=== PATIENT | female | born 1975 | race Caucasian/White ===

== ENCOUNTER → 2016-09-05 | Outpatient (CLI) | payer BC ==
[~2016-09-05] MED LIST: ASP325T PO; CA C1TAB73 PO; CYCL10TA9 PO; ESCT10T PO; FLUT16SP22; HYDR200T46 PO; LVT.025T PO; NAPR-243 PO; NAPR250T34 PO; PRD20T PO; SULF1TAB35 PO; TRM50T PO
--- OUTSIDE RECORDS SUMMARY | 2016-09-05 11:28 | XMS REPORT ---
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
== END ==
LOC: LAB 11:25
PROVIDERS: ATTEND Nurse Practitioner Family
DX: M79.602 Pain in left arm (principal)
CPT/HCPCS: 36415; 85379

== ENCOUNTER → 2016-10-15 | Outpatient (CLI) | payer BC ==
--- NOTE | 2016-10-15 21:48 | Diagnostic Imaging Report ---
INDICATION: Palpable abnormality. FINDINGS: Focused ultrasound in the periareolar area of the right breast was performed. This demonstrated a benign cyst measuring 1.9 x 1 x 1.9 cm. There are a few other tiny benign cysts. No solid lesions are appreciated. Diffuse screening ultrasound of the left breast demonstrated numerous tiny benign cysts however no suspicious lesions. IMPRESSION: Category 2, benign. Bilateral renal cysts. Specifically, the palpable area in the subareolar region or the right breast corresponds to a 1.9 cm cyst. Dictated by: Dictated on workstation # [id number]
--- NOTE | 2016-10-15 21:52 | Diagnostic Imaging Report ---
INDICATION: Palpable abnormality. The current study was also evaluated with a Computer Aided Detection (CAD) system. COMPARISON: 08/12/14, 10/15/2016. FINDINGS: There is moderately dense fibroglandular tissue bilaterally. There is a focal area of increased parenchymal density in the subareolar region of the right breast. Ultrasound of this area demonstrated benign-appearing cyst. There is no discrete dominant mass, spiculated lesion or suspicious calcification identified. Skin, nipples and axillar are unremarkable. IMPRESSION: Category 2, benign. ACR BI-RADS Category 2: Benign findings. Result letter will be mailed to the patient. Note: At least 10% of breast cancer is not imaged by mammography. Dictated by: Dictated on workstation # [id number]
== END ==
LOC: RAD 07:59
PROVIDERS: ATTEND Nurse Practitioner Family
DX: N63 Unspecified lump in breast (principal)
CPT/HCPCS: 77066

== ENCOUNTER 2017-01-10 00:21 | Emergency (ER) | payer BC ==
[~2017-01-10] VITALS: Ht 154.9 cm; Wt 65.3 kg
[2017-01-10] MEDS ORDERED: SPIR50TA2 (00:37)
[2017-01-10] MEDS ORDERED: ESCI20TA45 (00:37)
[2017-01-10 01:26] LABS: BASOPHILS % (AUTO) 1 % (0-10); EOSINOPHILS # (AUTO) 0.2 10^3/uL (0.0-0.3); EOSINOPHILS % (AUTO) 2 % (0-10); LYMPHOCYTES # (AUTO) 2.2 X 10^3 (1.0-4.0); LYMPHOCYTES % (AUTO) 30 % (12-44); MEAN CORPUSCULAR HEMOGLOBIN 29 PG (25-34); MEAN CORPUSCULAR HGB CONC 34 G/DL (32-36); MEAN CORPUSCULAR VOLUME 87 FL (80-99); MEAN PLATELET VOLUME 8.8 FL (7.4-10.4); MONOCYTES # (AUTO) 0.8 X 10^3 (0.0-1.0); MONOCYTES % (AUTO) 12 % (0-12); NEUTROPHILS % (AUTO) 56 % (42-75); PLATELET COUNT 417 10^3/uL (130-400); RED BLOOD COUNT 4.37 10^6/uL (4.35-5.85); RED CELL DISTRIBUTION WIDTH 12.8 % (10.0-14.5); WHITE BLOOD COUNT 7.2 10^3/uL (4.3-11.0)
[2017-01-10 01:32] LABS: BILIRUBIN,URINE NEGATIVE (NEGATIVE); KETONES,URINE NEGATIVE (NEGATIVE); LEUKOCYTE ESTERASE ,URINE NEGATIVE (NEGATIVE); NITRITE,URINE NEGATIVE (NEGATIVE); PH,URINE 6.5 (5-9); PROTEIN,URINE NEGATIVE (NEGATIVE); UROBILINOGEN,URINE NORMAL (NORMAL)
[2017-01-10 01:37] LABS: SQUAMOUS EPITHELIAL CELL,UR 0-2 /HPF
[2017-01-10 01:46] LABS: ALANINE AMINOTRANSFERASE 21 U/L (0-55); ALBUMIN 4.3 G/DL (3.2-4.5); ANION GAP 8 MMOL/L (5-14); ASPARTATE AMINO TRANSFERASE 14 U/L (5-34); BILIRUBIN,TOTAL 0.4 MG/DL (0.1-1.0); BLOOD UREA NITROGEN 13 MG/DL (7-18); BUN/CREATININE RATIO 15; CALCIUM 9.2 MG/DL (8.5-10.1); CARBON DIOXIDE 27 MMOL/L (21-32); CHLORIDE 100 MMOL/L (98-107); CREATININE SERUM 0.86 MG/DL (0.60-1.30); GFR ESTIMATED > 60; GLUCOSE 103 MG/DL (70-105); MAGNESIUM 2.4 MG/DL (1.8-2.4); POTASSIUM 3.4 MMOL/L (3.6-5.0); SODIUM 135 MMOL/L (135-145); TOTAL PROTEIN 7.1 G/DL (6.4-8.2)
[2017-01-10 02:06] LABS: THYROID STIMULATING HORMONE 1.98 UIU/ML (0.35-4.94)
[2017-01-10] MEDS ORDERED: KCL 20 MEQ TAB (K-DUR) PO ONE (02:30)
--- NOTE | 2017-01-10 02:31 | ED Lower Extremity ---
General Chief Complaint: Lower Extremity Stated Complaint: BOTH LEGS RETAINING FLUID,SWELLING,ACHING,LUPUS, Nursing Triage Note: patient reports her legs being swollen, patient reports having a history of this and having PRN medication. patient reports it hasn't been this bad before Nursing Sepsis Screen: No Definite Risk Source: patient, RN notes reviewed Exam Limitations: no limitations History of Present Illness Time seen by provider: 01:45 Initial Comments As above and below. Onset: this evening Severity: moderate Pain/Injury Location: bilateral leg Method of Injury: unknown Modifying Factors: Improves With Other (none) Allergies and Home Medications Allergies Coded Allergies: Penicillins (Verified Allergy, Intermediate, HIVES AND SWELLING, 09/14/15) Home Medications Aspirin 325 Mg Tab, 325 MG PO DAILY, (Reported) Escitalopram Oxalate 20 Mg Tablet, #30 (Reported) Furosemide 40 Mg Tablet, 40 MG PO Q AM PRN for SWELLING, #30 Ref 0 Prescribed by: LIDIA BARKLEY on 01/10/17 0237 Hydroxychloroquine Sulfate 200 Mg Tab, 400 MG PO DAILY, (Reported) Potassium Chloride 20 Meq Tab.er.prt, 20 MEQ PO Q AM PRN for WITH LASIX, #30 Ref 0 Prescribed by: LIDIA BARKLEY on 01/10/17 0237 Spironolactone 50 Mg Tablet, #60 (Reported) Constitutional: see HPI Musculoskeletal: see HPI, other (BLE swelling and discomfort) All Other Systems Reviewed Negative Unless Noted: Yes (Negative excepted noted.) Past Oxqkyls-Ycrzkt-Hovrdv Hx Patient Social History Alcohol Use: Denies Use Recreational Drug Use: No Smoking Status: Never a Smoker Recent Foreign Travel: No Contact w/Someone Who Travel: No Recent Infectious Disease Expo: No Immunizations Up To Date Tetanus Booster (TDap): More than 5yrs Surgeries HX Surgeries: Yes Respiratory Hx Respiratory Disorders: No Cardiovascular Hx Cardiac Disorders: Yes Neurological Hx Neurological Disorders: No Genitourinary Hx Genitourinary Disorders: No Gastrointestinal Hx Gastrointestinal Disorders: No Musculoskeletal Hx Musculoskeletal Disorders: Yes (LUPUS) Endocrine Hx Endocrine Disorders: Yes Endocrine Disorders: Hypothyroidsim, Lupus HEENT HX ENT Disorders: No Cancer Hx Cancer: No Psychosocial Hx Psychiatric Problems: Yes (OCD) Integumentary HX Skin/Integumentary Disorder: No Blood Transfusions Hx Blood Disorders: No Physical Exam Vital Signs Vital Sign - Last 12Hours 01/10/17 00:33 Temp 98.4 Pulse 100 Resp 18 B/P (MAP) 151/95 Pulse Ox 98 Capillary Refill : Less Than 3 Seconds General Appearance: WD/WN, no apparent distress Cardiovascular: regular rate, rhythm Respiratory: no respiratory distress Legs: bilateral leg non-tender, bilateral leg no evidence of injury, bilateral leg swelling Neurologic/Psychiatric: no motor/sensory deficits, alert, oriented x 3 Skin: normal color, warm/dry, No rash Progress/Results/Core Measures Results/Orders Lab Results Laboratory Tests Test 01/10/17 01:15 01/10/17 01:18 Range/Units White Blood Count 7.2 4.3-11.0 10^3/uL Red Blood Count 4.37 4.35-5.85 10^6/uL Hemoglobin 12.8 11.5-16.0 G/DL Hematocrit 38 35-52 % Mean Corpuscular Volume 87 80-99 FL Mean Corpuscular Hemoglobin 29 25-34 PG Mean Corpuscular Hemoglobin Concent 34 32-36 G/DL Red Cell Distribution Width 12.8 10.0-14.5 % Platelet Count 417 H 130-400 10^3/uL Mean Platelet Volume 8.8 7.4-10.4 FL Neutrophils (%) (Auto) 56 42-75 % Lymphocytes (%) (Auto) 30 12-44 % Monocytes (%) (Auto) 12 0-12 % Eosinophils (%) (Auto) 2 0-10 % Basophils (%) (Auto) 1 0-10 % Neutrophils # (Auto) 4.0 1.8-7.8 X 10^3 Lymphocytes # (Auto) 2.2 1.0-4.0 X 10^3 Monocytes # (Auto) 0.8 0.0-1.0 X 10^3 Eosinophils # (Auto) 0.2 0.0-0.3 10^3/uL Basophils # (Auto) 0.0 0.0-0.1 10^3/uL Sodium Level 135 135-145 MMOL/L Potassium Level 3.4 L 3.6-5.0 MMOL/L Chloride Level 100 98-107 MMOL/L Carbon Dioxide Level 27 21-32 MMOL/L Anion Gap 8 5-14 MMOL/L Blood Urea Nitrogen 13 7-18 MG/DL Creatinine 0.86 0.60-1.30 MG/DL Estimat Glomerular Filtration Rate > 60 BUN/Creatinine Ratio 15 Glucose Level 103 70-105 MG/DL Calcium Level 9.2 8.5-10.1 MG/DL Magnesium Level 2.4 1.8-2.4 MG/DL Total Bilirubin 0.4 0.1-1.0 MG/DL Aspartate Amino Transf (AST/SGOT) 14 5-34 U/L Alanine Aminotransferase (ALT/SGPT) 21 0-55 U/L Alkaline Phosphatase 36 L 40-136 U/L Total Creatine Kinase 76 29-168 U/L B-Type Natriuretic Peptide 12.4 <100.0 PG/ML Total Protein 7.1 6.4-8.2 G/DL Albumin 4.3 3.2-4.5 G/DL Thyroid Stimulating Hormone (TSH) 1.98 0.35-4.94 UIU/ML Urine Color YELLOW Urine Clarity CLEAR Urine pH 6.5 5-9 Urine Specific [place] 1.010 L 1.016-1.022 Urine Protein NEGATIVE NEGATIVE Urine Glucose (UA) NEGATIVE NEGATIVE Urine Ketones NEGATIVE NEGATIVE Urine Nitrite NEGATIVE NEGATIVE Urine Bilirubin NEGATIVE NEGATIVE Urine Urobilinogen NORMAL NORMAL MG/DL Urine Leukocyte Esterase NEGATIVE NEGATIVE Urine RBC (Auto) 3+ H NEGATIVE Urine RBC NONE /HPF Urine WBC NONE /HPF Urine Squamous Epithelial Cells 0-2 /HPF Urine Crystals NONE /LPF Urine Bacteria NEGATIVE /HPF Urine Casts NONE /LPF Urine Mucus NEGATIVE /LPF Urine Culture Indicated NO Urine Test NEGATIVE NEGATIVE My Orders Orders - LIDIA BARKLEY DO Saline Lock/Iv-Start (01/10/17 01:08) BNP (01/10/17 01:08) Cbc With Automated Diff (01/10/17 01:08) Comprehensive Metabolic Panel (01/10/17 01:08) Magnesium (01/10/17 01:08) Thyroid Stimulating Hormone (01/10/17 01:08) Ua Culture If Indicated (01/10/17 01:08) Hcg,Qualitative Urine (01/10/17 01:14) Creatine Kinase (01/10/17 01:59) Potassium Chloride (Tablet) (K Dur Table (01/10/17 02:30) Medications Given in ED Current Medications Medications Dose Ordered Sig/Daksha Route Start Time Stop Time Status Last Admin Dose Admin Potassium Chloride 40 meq ONCE ONCE PO 01/10/17 02:30 01/10/17 02:31 DC 01/10/17 02:40 40 MEQ Vital Signs/I&O Vital Sign - Last 12Hours 01/10/17 01/10/17 00:33 02:42 Temp 98.4 Pulse 100 84 Resp 18 20 B/P (MAP) 151/95 Pulse Ox 98 99 Blood Pressure Mean: 113 Departure Impression Impression: Primary Impression: Peripheral edema Disposition: HOME, SELF-CARE Condition: Stable Departure-Patient Inst. Decision time for Depature: 02:32 Referrals: LIDIA URENA DO (PCP) Primary Care Physician SPENCER URENA DNP (Family) Primary Care Physician Patient Instructions: Dependent Edema (DC) Add. Discharge Instructions: All discharge instructions reviewed with patient and/or family. Voiced understanding. RECOMMEND TOUCHING BASE WITH YOUR INFORMATION SYSTEMS AUDIT MANAGER REGARDING YOUR SWELLING TO SEE IF THERE IS ANYTHING ELSE THEY RECOMMEND CHECKING. Scripts Potassium Chloride (Potassium Chloride) 20 Meq Tab.er.prt 20 MEQ PO Q AM Y for WITH LASIX, #30 0 Refills Prov: LIDIA BARKLEY DO 01/10/17 Furosemide (Lasix) 40 Mg Tablet 40 MG PO Q AM Y for SWELLING, #30 TAB 0 Refills Prov: LIDIA BARKLEY DO 01/10/17 LIDIA BARKLEY DO January 10, 2017 02:31
[2017-01-10] MEDS ORDERED: POTA20TA15 PO (02:37)
[2017-01-10] MEDS ORDERED: FURO-124 PO (02:37)
[2017-01-10 02:42] VITALS: BP 131/78
== END 2017-01-10 02:42 | disposition home or self-care (01) ==
LOC: EDUNIT# 00:21 → ER 00:24
DX: R60.0 Localized edema (principal); L93.0 Discoid lupus erythematosus; Z79.82 Long term (current) use of aspirin; Z79.899 Other long term (current) drug therapy
CPT/HCPCS: 36415; 80053; 81000; 82550; 83735; 83880; 84443; 84703; 85025

== ENCOUNTER 2017-01-14 17:05 | Emergency (ER) | payer BC ==
[~2017-01-14] VITALS: Ht 154.9 cm; Wt 67.1 kg
[~2017-01-14 17:05] MED LIST changes: +ESCI20TA45; +FURO-124 PO; +POTA20TA15 PO; +SPIR50TA2
--- NOTE | 2017-01-14 17:26 | ED Lower Extremity ---
General Chief Complaint: Lower Extremity Stated Complaint: L LEG PAIN Source: patient Exam Limitations: no limitations History of Present Illness Time seen by provider: 17:24 Initial Comments To ER with left leg burning and pain. She was seen here on Saturday the for bilateral lower extremities burning and pain. She does have lupus. She also states that both legs were swollen. She had labs drawn and was ultimately given some potassium and Lasix. No improvement in symptoms. Today of the left leg seems to be a bit more painful. She states that she is test positive for the antiphospholipid antibody and does have a history of DVT. She is on Plaquenil for lupus. Onset: last week Severity: moderate Pain/Injury Location: bilateral leg Method of Injury: unknown Modifying Factors: Worse With Movement Allergies and Home Medications Allergies Coded Allergies: Penicillins (Verified Allergy, Intermediate, HIVES AND SWELLING, 09/14/15) Home Medications Aspirin 325 Mg Tab, 325 MG PO DAILY, (Reported) Escitalopram Oxalate 20 Mg Tablet, #30 (Reported) Furosemide 40 Mg Tablet, 40 MG PO Q AM PRN for SWELLING, #30 Ref 0 Prescribed by: LIDIA BARKLEY on 01/10/17 0237 Hydroxychloroquine Sulfate 200 Mg Tab, 400 MG PO DAILY, (Reported) Potassium Chloride 20 Meq Tab.er.prt, 20 MEQ PO Q AM PRN for WITH LASIX, #30 Ref 0 Prescribed by: LIDIA BARKLEY on 01/10/17 0237 Spironolactone 50 Mg Tablet, #60 (Reported) Constitutional: see HPI EENTM: see HPI Respiratory: no symptoms reported Cardiovascular: no symptoms reported Genitourinary: no symptoms reported Musculoskeletal: no symptoms reported Skin: no symptoms reported Psychiatric/Neurological: No Symptoms Reported Past Vunfnjq-Lcdujg-Xlusqg Hx Patient Social History Alcohol Use: Occasionally Uses Recreational Drug Use: No Smoking Status: Never a Smoker Recent Foreign Travel: No Contact w/Someone Who Travel: No Immunizations Up To Date Tetanus Booster (TDap): More than 5yrs Surgeries HX Surgeries: Yes Respiratory Hx Respiratory Disorders: No Cardiovascular Hx Cardiac Disorders: Yes Neurological Hx Neurological Disorders: No Genitourinary Hx Genitourinary Disorders: No Gastrointestinal Hx Gastrointestinal Disorders: No Musculoskeletal Hx Musculoskeletal Disorders: Yes (LUPUS) Endocrine Hx Endocrine Disorders: Yes Endocrine Disorders: Hypothyroidsim, Lupus HEENT HX ENT Disorders: No Cancer Hx Cancer: No Psychosocial Hx Psychiatric Problems: Yes (OCD) Integumentary HX Skin/Integumentary Disorder: No Blood Transfusions Hx Blood Disorders: No Physical Exam Vital Signs Vital Sign - Last 12Hours 01/14/17 17:12 Temp 98.8 Pulse 90 Resp 18 B/P (MAP) 128/83 Pulse Ox 98 Capillary Refill : General Appearance: WD/WN, no apparent distress HEENT: PERRL/EOMI, normal ENT inspection Neck: non-tender, full range of motion Respiratory: no respiratory distress, no accessory muscle use Gastrointestinal: normal bowel sounds, non tender, soft Hips: bilateral hip non-tender, bilateral hip normal inspection, bilateral hip normal range of motion Legs: bilateral leg non-tender, bilateral leg normal inspection, bilateral leg normal range of motion, bilateral leg other (no palpable swelling, no pitting edema, no ecchymosis or abnormal appearance to either lower extremity.) Knees: bilateral knee non-tender, bilateral knee normal inspection, bilateral knee normal range of motion Ankles: bilateral ankle non-tender, bilateral ankle normal inspection, bilateral ankle normal range of motion Feet: bilateral foot non-tender, bilateral foot normal inspection, bilateral foot normal range of motion Neurologic/Psychiatric: alert, normal mood/affect, oriented x 3 Skin: normal color, warm/dry Progress/Results/Core Measures Results/Orders Lab Results Laboratory Tests Test 01/14/17 17:50 Range/Units White Blood Count 7.0 4.3-11.0 10^3/uL Red Blood Count 4.42 4.35-5.85 10^6/uL Hemoglobin 12.7 11.5-16.0 G/DL Hematocrit 38 35-52 % Mean Corpuscular Volume 86 80-99 FL Mean Corpuscular Hemoglobin 29 25-34 PG Mean Corpuscular Hemoglobin Concent 33 32-36 G/DL Red Cell Distribution Width 12.6 10.0-14.5 % Platelet Count 400 130-400 10^3/uL Mean Platelet Volume 8.4 7.4-10.4 FL Neutrophils (%) (Auto) 63 42-75 % Lymphocytes (%) (Auto) 25 12-44 % Monocytes (%) (Auto) 10 0-12 % Eosinophils (%) (Auto) 2 0-10 % Basophils (%) (Auto) 0 0-10 % Neutrophils # (Auto) 4.4 1.8-7.8 X 10^3 Lymphocytes # (Auto) 1.7 1.0-4.0 X 10^3 Monocytes # (Auto) 0.7 0.0-1.0 X 10^3 Eosinophils # (Auto) 0.1 0.0-0.3 10^3/uL Basophils # (Auto) 0.0 0.0-0.1 10^3/uL Erythrocyte Sedimentation Rate 6 0-20 MM/HR Sodium Level 130 L 135-145 MMOL/L Potassium Level 3.8 3.6-5.0 MMOL/L Chloride Level 94 L 98-107 MMOL/L Carbon Dioxide Level 26 21-32 MMOL/L Anion Gap 10 5-14 MMOL/L Blood Urea Nitrogen 8 7-18 MG/DL Creatinine 0.71 0.60-1.30 MG/DL Estimat Glomerular Filtration Rate > 60 BUN/Creatinine Ratio 11 Glucose Level 90 70-105 MG/DL Calcium Level 9.1 8.5-10.1 MG/DL C-Reactive Protein High Sensitivity 0.05 0.00-0.50 MG/DL My Orders Orders - RACHELLE HARPER APRN Us Venous Lower Ext Harini (01/14/17 17:24) Cbc With Automated Diff (01/14/17 17:28) Hs C Reactive Protein (01/14/17 17:28) Erythrocyte Sedimentation Rate (01/14/17 17:28) Basic Metabolic Panel (01/14/17 17:28) Vital Signs/I&O Vital Sign - Last 12Hours 01/14/17 17:12 Temp 98.8 Pulse 90 Resp 18 B/P (MAP) 128/83 Pulse Ox 98 Diagnostic Imaging Diagonstic Imaging: Ultrasound Comments NAME: ROBBIE PI[facility]A [facility] REC#: [id number] PT STATUS: REG ER : 1975 PHYSICIAN: RACHELLE HARPER APRN ADMIT DATE: 01/14/17/ER Draft Date of Exam:01/14/17 US VENOUS LOWER EXT HARINI INDICATION: Bilateral leg pain. COMPARISON: None. TECHNIQUE: The bilateral lower extremity deep venous system was interrogated from the common femoral vein through the popliteal vein. These images were assessed for grayscale appearance, color and spectral Doppler blood flow, compression, and augmentation. FINDINGS: There is no evidence of intraluminal filling defect. Normal compression and augmentation is noted throughout. Soft tissues are unremarkable. IMPRESSION: 1. No sonographic evidence of deep venous thrombosis in the bilateral lower extremities. Dictated on workstation # [id number] Dict: 01/14/171749 Trans: 01/14/171751 [id number] Interpreted by: YOSI DENIS MD Electronically signed by: Departure Impression Impression: Primary Impression: leg discomfort Disposition: HOME, SELF-CARE Condition: Stable Departure-Patient Inst. Decision time for Depature: 18:54 Referrals: LIDIA AGARWAL DO (PCP) Primary Care Physician SPENCER AGARWAL DNP (Family) Primary Care Physician Patient Instructions: NO INSTRUCTIONS GIVEN Add. Discharge Instructions: 1. A copy of these labs have been sent to Dr. Agarwal. Call his office tomorrow for further evaluation and treatment 2. All discharge instructions reviewed with patient and/or family. Voiced understanding. Copy Copies To 1: LIDIA AGARWAL PETER J APRN January 14, 2017 17:26
--- NOTE | 2017-01-14 17:52 | Diagnostic Imaging Report ---
INDICATION: Bilateral leg pain. COMPARISON: None. TECHNIQUE: The bilateral lower extremity deep venous system was interrogated from the common femoral vein through the popliteal vein. These images were assessed for grayscale appearance, color and spectral Doppler blood flow, compression, and augmentation. FINDINGS: There is no evidence of intraluminal filling defect. Normal compression and augmentation is noted throughout. Soft tissues are unremarkable. IMPRESSION: 1. No sonographic evidence of deep venous thrombosis in the bilateral lower extremities. Dictated by: Dictated on workstation # [id number]
[2017-01-14 17:57] LABS: BASOPHILS % (AUTO) 0 % (0-10); EOSINOPHILS # (AUTO) 0.1 10^3/uL (0.0-0.3); EOSINOPHILS % (AUTO) 2 % (0-10); LYMPHOCYTES # (AUTO) 1.7 X 10^3 (1.0-4.0); LYMPHOCYTES % (AUTO) 25 % (12-44); MEAN CORPUSCULAR HEMOGLOBIN 29 PG (25-34); MEAN CORPUSCULAR HGB CONC 33 G/DL (32-36); MEAN CORPUSCULAR VOLUME 86 FL (80-99); MEAN PLATELET VOLUME 8.4 FL (7.4-10.4); MONOCYTES # (AUTO) 0.7 X 10^3 (0.0-1.0); MONOCYTES % (AUTO) 10 % (0-12); NEUTROPHILS # (AUTO) 4.4 X 10^3 (1.8-7.8); NEUTROPHILS % (AUTO) 63 % (42-75); PLATELET COUNT 400 10^3/uL (130-400); RED BLOOD COUNT 4.42 10^6/uL (4.35-5.85); RED CELL DISTRIBUTION WIDTH 12.6 % (10.0-14.5)
[2017-01-14 18:18] LABS: ANION GAP 10 MMOL/L (5-14); BLOOD UREA NITROGEN 8 MG/DL (7-18); BUN/CREATININE RATIO 11; CALCIUM 9.1 MG/DL (8.5-10.1); CARBON DIOXIDE 26 MMOL/L (21-32); CHLORIDE 94 MMOL/L (98-107); CREATININE SERUM 0.71 MG/DL (0.60-1.30); GFR ESTIMATED > 60; GLUCOSE 90 MG/DL (70-105); POTASSIUM 3.8 MMOL/L (3.6-5.0); SODIUM 130 MMOL/L (135-145); hs C REACTIVE PROTEIN 0.05 MG/DL (0.00-0.50)
[2017-01-14 18:19] LABS: ERYTHROCYTE SEDIMENTATION RATE 6 MM/HR (0-20)
[2017-01-14 19:00] VITALS: BP 113/81
== END 2017-01-14 19:00 | disposition home or self-care (01) ==
LOC: EDUNIT# 17:05 → ER 17:07
DX: M79.662 Pain in left lower leg (principal); L93.0 Discoid lupus erythematosus; Z79.82 Long term (current) use of aspirin; Z79.899 Other long term (current) drug therapy; Z86.718 Personal history of other venous thrombosis and embolism
CPT/HCPCS: 36415; 80048; 85025; 85652; 86141; 93970; 99283

== ENCOUNTER 2017-10-18 17:19 | Emergency (ER) | payer BC ==
[~2017-10-18] VITALS: Ht 154.9 cm; Wt 68.0 kg
--- NOTE | 2017-10-18 17:33 | ED Lower Extremity ---
General Chief Complaint: Lower Extremity Stated Complaint: L LEG POSS BLOOD CLOT Nursing Triage Note: cramping in calf on saturday after lots of traveling, patient has antiphospolipid syndrome. Nursing Sepsis Screen: No Definite Risk History of Present Illness Date Seen by Provider: Oct 18, 2017 Time Seen by Provider: 17:28 Initial Comments Patient presents to the ER with concern for DVT of the left lower extremity. Patient reports having a cramp in her leg last Saturday and Saturday (10/12 & 10/13 ) but this has resolved and not returned since. She reports mild swelling to the ankles bilaterally, denies redness, and denies any current pain. Patient has had extensive recent travel flying from [place] to [place] back to [place] and then driving to [place] and back to [place] over the past 2 weeks. She reports having a history of antiphospholipid disorder and taking a daily aspirin but is concerned for a blood clot like evaluated. She had outpatient order from her primary care provider to have d-dimer and left lower extremity ultrasound done, however, since ultrasound had already left for the day they could not be called in for a stat outpatient scan so the patient checked into the emergency room. Onset: last week Severity: mild Method of Injury: unknown Allergies and Home Medications Allergies Coded Allergies: Penicillins (Verified Allergy, Intermediate, HIVES AND SWELLING, 09/14/15) Home Medications Aspirin 325 Mg Tab, 325 MG PO DAILY, (Reported) Furosemide 40 Mg Tablet, 40 MG PO Q AM PRN for SWELLING Prescribed by: LIDIA BARKLEY on 01/10/17236 Hydroxychloroquine Sulfate 200 Mg Tab, 400 MG PO DAILY, (Reported) Potassium Chloride 20 Meq Tab.er.prt, 20 MEQ PO Q AM PRN for WITH LASIX Prescribed by: LIDIA BARKLEY on 01/10/17236 Constitutional: no symptoms reported, see HPI EENTM: see HPI, no symptoms reported Respiratory: no symptoms reported, see HPI Cardiovascular: no symptoms reported, see HPI Gastrointestinal: no symptoms reported, see HPI Genitourinary: no symptoms reported, see HPI Musculoskeletal: see HPI, other (minimal swelling to the ankles bilaterally) Skin: no symptoms reported, see HPI Psychiatric/Neurological: No Symptoms Reported, See HPI Past Leyuesq-Xshauv-Ehlmzo Hx Patient Social History Recent Foreign Travel: No Contact w/Someone Who Travel: No Recent Infectious Disease Expo: No Immunizations Up To Date Tetanus Booster (TDap): More than 5yrs Surgeries History of Surgeries: Yes Respiratory History of Respiratory Disorde: No Cardiovascular History of Cardiac Disorders: Yes (fluid retention) Neurological History of Neurological Disord: No Gastrointestinal History of Gastrointestinal Di: No Musculoskeletal History of Musculoskeletal Dis: Yes (LUPUS) Endocrine History of Endocrine Disorders: Yes Endocrine Disorders: Hypothyroidsim, Lupus Cancer History of Cancer: No Psychosocial History of Psychiatric Problem: Yes (OCD) Integumentary History of Skin or Integumenta: No Blood Transfusions History of Blood Disorders: No Physical Exam Vital Signs Vital Signs - First Documented 10/18/17 17:24 Temp 99.0 Pulse 97 Resp 20 B/P (MAP) 143/94 (110) Pulse Ox 100 Capillary Refill : Less Than 3 Seconds General Appearance: WD/WN, no apparent distress HEENT: PERRL/EOMI, normal ENT inspection, TMs normal, pharynx normal Neck: non-tender, full range of motion Cardiovascular: normal peripheral pulses, regular rate, rhythm, no edema, no gallop, no JVD, no murmur Respiratory: chest non-tender, lungs clear, normal breath sounds, no respiratory distress, no accessory muscle use Gastrointestinal: normal bowel sounds, non tender, soft Back: normal inspection Neurologic/Tendon: normal sensation, normal motor functions Neurologic/Psychiatric: alert, normal mood/affect, oriented x 3 Skin: normal color, warm/dry Lymphatic: no adenopathy Progress/Results/Core Measures Results/Orders My Orders Orders - RACHELLE HARPER APRN Us Venous Lower Ext Lt (10/18/17 17:27) Vital Signs/I&O Vital Sign - Last 12Hours 10/18/17 10/18/17 17:24 18:19 Temp 99.0 99.0 Pulse 97 97 Resp 20 20 B/P (MAP) 143/94 (110) 143/94 (110) Pulse Ox 100 100 Blood Pressure Mean: 110 Departure Communication (Admissions) Progress Notes 1823-discussed with the patient her negative left lower extremity ultrasound. She is asking about the d-dimer which her primary care provider had ordered as an outpatient. However, Advised that since we have disproved clot with ultrasound which is more valuable than the d-dimer in DVT evaluation, there would be no value in adding a d-dimer at this point. She has no swelling erythema or pain to either arm or her right leg. Impression Impression: Primary Impression: history of cramps left lower extremity Additional Impressions: Antiphospholipid syndrome recent immobilization Disposition: 01 HOME, SELF-CARE Condition: Stable Departure-Patient Inst. Decision time for Depature: 18:15 Referrals: LIDIA URENA DO (PCP/Family) Primary Care Physician Patient Instructions: NO INSTRUCTIONS GIVEN Add. Discharge Instructions: 1. Return to ER for any concerns 2. Follow-up with your doctor next week 3. All discharge instructions reviewed with patient and/or family. Voiced understanding. RACHELLE HARPER APRN Oct 18, 2017 17:33
[2017-10-18 18:19] VITALS: BP 143/94
--- NOTE | 2017-10-18 18:31 | Diagnostic Imaging Report ---
PROCEDURE: US left lower extremity venous. TECHNIQUE: Multiple real-time grayscale images were obtained over the left lower extremity in various projections. Additional duplex Doppler and color Doppler images were also obtained. DATE: 10/18/2017. INDICATION: 42-year-old female, left calf pain. COMPARISON: 01/14/2017. FINDINGS: The left common femoral vein, left superficial femoral vein, and left popliteal vein are all compressible with normal flow and response to augmentation. The left posterior tibial and peroneal veins are patent. Visualized portions of the left greater saphenous vein and deep femoral vein are patent. IMPRESSION: 1. Negative for left lower extremity deep venous thrombosis. Dictated by: Dictated on workstation # [id number]
== END 2017-10-18 18:23 | disposition home or self-care (01) ==
LOC: EDUNIT# 17:19 → ER 17:20
DX: I82.402 Acute embolism and thrombosis of unspecified deep veins of left lower extremity (principal); D68.61 Antiphospholipid syndrome; M62.3 Immobility syndrome (paraplegic); E03.9 Hypothyroidism, unspecified; F42.9 Obsessive-compulsive disorder, unspecified; Z79.82 Long term (current) use of aspirin; Z88.0 Allergy status to penicillin

== ENCOUNTER 2018-07-04 17:43 | Observation (INO) | payer BC ==
[~2018-07-04] VITALS: Ht 154.9 cm; Wt 68.6 kg
[~2018-07-04 17:43] MED LIST changes: -SPIR50TA2; +SPIR50TA4
--- OUTSIDE RECORDS SUMMARY | 2018-07-04 17:49 | XMS REPORT | Clinical Summary ---
Author Author [facility] Address Unknown Phone Unavailable Care Team Providers Care Rehabilitation Attendant Name Role Phone PCP Unavailable Allergies Not on File Current Medications Not on file Active Problems Not on file Social History Tobacco Use Types Packs/Day Years Used Date Never Assessed Sex Assigned at Date Recorded Not on file Last Filed Vital Signs Not on file Plan of Treatment Not on file Results Not on filefrom Last 3 Months
--- OUTSIDE RECORDS SUMMARY | 2018-07-04 17:49 | XMS REPORT ---
Author Author BRII JUNG Organization [facility] Address [address] [place] [address] Care Team Providers Care Freelance Director Name Role Phone BRII JUNG Unavailable PROBLEMS Type Condition ICD9-CM Code [id number] Code Onset Dates Condition Status SNOMED Code Problem Anemia D64.9 Active 437321109 Problem [place] fever A21.9 Active 40632665 Problem Environmental allergies Z91.09 Active 981721185 Problem Iron deficiency anemia, unspecified D50.9 Active 58842937 Problem Cough R05 Active 06567819 Problem Thyroid adenoma D34 Active 526910037 Problem Hyperhomocysteinemia E72.11 Active 555495442 Problem Vitamin D deficiency E55.9 Active 76621535 Problem Osteopenia M85.80 Active 501223470 Problem Fibromyalgia M79.7 Active 382904378 Problem Chronic fatigue, unspecified R53.82 Active 09966271 Problem Anemia, iron deficiency D50.9 Active 22933382 Problem Lupus anticoagulant positive R76.0 Active 59055074 Problem Lupus M32.9 Active 90411279 ALLERGIES Substance Reaction Event Type Date Status Cipro Unknown Drug Allergy Jun, Active Penicillins Unknown Non Drug Allergy Jun, Active Sulfa Unknown Non Drug Allergy Jun, Active ENCOUNTERS Encounter Location Date Diagnosis [facility] [address] [facility] [id number] [id number] Jun, [facility] [address] [address] Jun, Cough R05 ; Anemia, iron deficiency D50.9 and Sore throat J02.9 [facility] [id number] [address] Jun, Cough R05 [facility] [id number] [place] [address] [id number] Jun, Cough R05 ; Sore throat J02.9 and Anemia, iron deficiency D50.9 [place] [address] [address] 07 Jun, 2017 Environmental allergies Z91.09 [facility] [id number] [place] [address] [id number] 03 Jun, 2017 Dysfunction of both eustachian tubes H69.83 and Cough in adult patient R05 [facility] [address] [id number] Nov, Insect bite, initial encounter W57.XXXA [facility] [address] [address] Oct, Gastroenteritis K52.9 [place] [id number] [place] [address] [id number] 15 Sep, 2016 Acute recurrent pansinusitis J01.41 and Cough R05 [place] [id number] [place] [address]- [address] 23 Jun, 2016 Environmental allergies Z91.09 ; Chronic fatigue R53.82 ; Anemia, iron deficiency D50.9 ; Lupus M32.9 and Vitamin D deficiency E55.9 [place] [id number] [place] [address]- [address] 15 Jun, 2016 [place] [address] [address] 14 Jun, 2016 [place] [id number] [place] [address]- [address] 10 Jun, 2016 Anemia, iron deficiency D50.9 ; Hyperhomocysteinemia E72.11 ; Chronic fatigue R53.82 ; Environmental allergies Z91.09 ; Cough R05 ; Lupus M32.9 ; Vitamin D deficiency E55.9 and Osteopenia M85.80 [place] [id number] [place] [address] Jun, [place] [id number] [place] [address] [id number]- [address] Apr, [facility] [address] [id number] Apr, Iron deficiency anemia, unspecified iron deficiency anemia type D50.9 and Cough R05 [facility] [id number] [place] [address]- [address] Nov, [place] [address] [address] Nov, Anemia D64.9 [place] [address] [id number] Oct, Chronic sinusitis, unspecified J32.9 ; Headache R51 ; Forgetfulness R68.89 and Low grade fever R50.9 [facility] [id number] [place] [address] [id number] Oct, Sinusitis J32.9 and Eustachian tube dysfunction H69.80 [place] [id number] [place] [address] Oct, Environmental allergies Z91.09 ; Lupus M32.9 ; Chronic fatigue R53.82 ; Hyperhomocysteinemia E72.11 ; Anemia D64.9 and Anemia, iron deficiency D50.9 [facility] [id number] [place] [address] [id number] Sep, Eustachian tube dysfunction H69.80 [place] [id number] [place] [address]- 59[address] 16 Apr, 2015 Dysuria 788.1 and Urinary tract infection 599.0 [place] [id number] [place] [address]- 86[address] 14 Nov, 2014 [place] [id number] [place] [address]- 4[address] 13 Nov, 2014 [place] [address] [address] Oct, [facility] [place] [facility] [address] [id number] [place] [address] Oct, [facility] [place] [facility] [address] [id number] [place] [address] Aug, [facility] [place] [facility] [address] [id number] [place] [address] Aug, [facility] [place] [facility] [address] [id number] [place] [address] Aug, [facility] [place] [facility] [address] [id number] [place] [address] Aug, [facility] [place] [facility] [address] [id number] [place] [address] May, [facility] [place] [facility] [address] [id number] [place] [address] May, [facility] [place] [facility] [address] [id number] [place] [address] May, [facility] [place] [facility] [address] [id number] [place] [address] May, [facility] [place] [facility] [address] [id number] [place] [address] December, [facility] [place] [facility] [address] [id number] [place] [address] December, [facility] [place] [facility] [address] [id number] [place] [address] Oct, [facility] [place] [facility] [address] [id number] [place] [address] Oct, [facility] [place] [facility] [address] [id number] [place] [address] Aug, [facility] [place] [facility] [address] [id number] [place] [address] Aug, [facility] [place] [facility] [address] [facility] [id number] [place] [address] Jul, [facility] [address] [facility] [id number] [address] Jul, [facility] [address] [facility] [id number] [place] [address] Jun, [facility] [address] [facility] [id number] [address] Jun, IMMUNIZATIONS No Known Immunizations SOCIAL HISTORY Never Assessed REASON FOR VISIT cough, sore throat, and fatigue x 5 days [facility] PLAN OF CARE Activity Details Follow Up if s/s not improving with PCP or in Clinic Reason: VITAL SIGNS Height 60 in 2018-06-27 Weight 151 lbs 2018-06-27 Temperature 99.6 degrees Fahrenheit 2018-06-27 Heart Rate 88 bpm 2018-06-27 Respiratory Rate 18 2018-06-27 Oximetry 99 % 2018-06-27 BMI 29.49 kg/m2 2018-06-27 Blood pressure systolic 120 mmHg 2018-06-27 Blood pressure diastolic 82 mmHg 2018-06-27 MEDICATIONS Medication Instructions Dosage Frequency Start Date End Date Duration Status Doxycycline Hyclate 100 mg Orally twice a day 1 capsule 12h Jun, Jun, 10 day(s) Active ProAir HFA 108 (90 Base) MCG/ACT Inhalation every 6 hrs 2 puffs as needed 6h Jun, 0 days Active Plaquenil 400 mg Orally Once a day 1 tablet with food or milk 24h Active PredniSONE 20 mg Orally Once a day 2 tablet 24h Jun, Jun, 5 days Active Omeprazole 20 MG Orally Once a day 1 capsule 24h 30 day(s) Active RESULTS Name Result Date Reference Range STREP A (IN HOUSE) 2018-06-27 STREP A Negative Control + Lot # [id number] Exp date 07/25/2018 PROCEDURES Procedure Date Ordered Result Body Site STREP A ASSAY W/OPTIC Jun 27, 2018 INSTRUCTIONS MEDICATIONS ADMINISTERED No Known Medications MEDICAL (GENERAL) HISTORY Type Description Date Medical History Lupus Medical History Hx of UTI Medical History [place] fever + 09/10 Medical History Hx of nasal polyp 2012 Medical History whooping cough Medical History Iron deficiency anemia Surgical History cholecystectomy Dr Nunes Hospitalization History [facility] [place] Hospitalization History Iron deficiency anemia 11/25/2015
--- OUTSIDE RECORDS SUMMARY | 2018-07-04 17:50 | XMS REPORT ---
Author Author BRII JUNG [facility] Address [address] [place] [address] Care Team Providers Care Area Coordinator Name Role Phone BRII JUNG Unavailable PROBLEMS Type Condition ICD9-CM Code PRJ85-GN Code Onset Dates Condition Status SNOMED Code Problem Anemia D64.9 Active 381751555 Problem [place] fever A21.9 Active 51241964 Problem Environmental allergies Z91.09 Active 117699419 Problem Iron deficiency anemia, unspecified D50.9 Active 66389981 Problem Cough R05 Active 60277810 Problem Thyroid adenoma D34 Active 828432239 Problem Hyperhomocysteinemia E72.11 Active 084819678 Problem Vitamin D deficiency E55.9 Active 91630269 Problem Osteopenia M85.80 Active 319835605 Problem Fibromyalgia M79.7 Active 384964392 Problem Chronic fatigue, unspecified R53.82 Active 92144666 Problem Anemia, iron deficiency D50.9 Active 26643199 Problem Lupus anticoagulant positive R76.0 Active 86096142 Problem Lupus M32.9 Active 99435747 ALLERGIES No Information ENCOUNTERS Encounter Location Date Diagnosis [facility] [address] [address] Jun, Cough R05 ; Anemia, iron deficiency D50.9 and Sore throat J02.9 [facility] [address] [address] Jun, [address] [facility] [address] [place] [address] [id number] Jun, Cough R05 ; Sore throat J02.9 and Anemia, iron deficiency D50.9 [facility] [id number] [place] [address]- [address] Jun, Environmental allergies Z91.09 [facility] [address] [place] [address] [id number] Jun, Dysfunction of both eustachian tubes H69.83 and Cough in adult patient R05 [facility] [id number] [place] [address] [id number] Nov, Insect bite, initial encounter W57.XXXA [facility] [address] [address] Oct, Gastroenteritis K52.9 [place] [address] [id number] Sep, Acute recurrent pansinusitis J01.41 and Cough R05 [place] [address] [address] 23 Jun, 2016 Environmental allergies Z91.09 ; Chronic fatigue R53.82 ; Anemia, iron deficiency D50.9 ; Lupus M32.9 and Vitamin D deficiency E55.9 [place] [id number] [place] [address]- [address] Jun, [place] [address] [address] 14 Jun, 2016 [place] [id number] [place] [address]- [address] 10 Jun, 2016 Anemia, iron deficiency D50.9 ; Hyperhomocysteinemia E72.11 ; Chronic fatigue R53.82 ; Environmental allergies Z91.09 ; Cough R05 ; Lupus M32.9 ; Vitamin D deficiency E55.9 and Osteopenia M85.80 [place] [id number] [place] [address]- [address] Jun, [place] [address] [address] Apr, [facility] [id number] [place] [address] [id number] Apr, Iron deficiency anemia, unspecified iron deficiency anemia type D50.9 and Cough R05 [facility] [address] [address] Nov, [facility] [id number] [place] [address]- 97[address] Nov, Anemia D64.9 [facility] [id number] [place] [address] [id number] 29 Oct, 2015 Chronic sinusitis, unspecified J32.9 ; Headache R51 ; Forgetfulness R68.89 and Low grade fever R50.9 [facility] [id number] [place] [address] [id number] Oct, Sinusitis J32.9 and Eustachian tube dysfunction H69.80 [facility] [id number] [place] [address]- [address] Oct, Environmental allergies Z91.09 ; Lupus M32.9 ; Chronic fatigue R53.82 ; Hyperhomocysteinemia E72.11 ; Anemia D64.9 and Anemia, iron deficiency D50.9 [facility] [address] [place] [address] [id number] Sep, Eustachian tube dysfunction H69.80 [facility] [address] [place] [address]- 8793 16 Apr, 2015 Dysuria 788.1 and Urinary tract infection 599.0 [facility] [id number] [place] [address]- 4861 14 Nov, 2014 [facility] [address] [place] [address]- 35[address] Nov, [facility] [id number] [place] [address]226- 2028 10 Oct, 2014 [facility] [id number] [place] [address]- 0601 10 Oct, 2014 [facility] [id number] [place] [address]- 1190 Aug, [facility] [place] [facility] [address] [id number] [place] [address]- 54[address] Aug, [facility] [place] [facility] [address] [id number] [place] [address]- 1871 Aug, [facility] [place] [facility] [address] [id number] [place] [address]- 3180 Aug, [facility] [place] [facility] [address] [id number] [place] [address]- 0564 May, [facility] [place] [facility] [address] [id number] [place] [address]- 8829 May, [facility] [place] [facility] [address] [id number] [place] [address]- 8932 May, [facility] [place] [facility] [address] [id number] [place] [address]- 4548 May, [facility] [place] [facility] [address] [id number] [place] [address]- 4593 December, [facility] [place] [facility] [address] [id number] [place] [address]- 7[address] December, [facility] [place] [facility] [address] [id number] [place] [address]- 1891 Oct, [facility] [place] [facility] [address] [id number] [place] [address]- 7368 Oct, [facility] [place] [facility] [address] [id number] [place] [address]- 4400 Aug, [facility] [place] [facility] [address] [id number] [place] [address]- 9872 Aug, [facility] [place] [facility] [address] [id number] [place] [address]- 8000 Jul, [facility] [place] [facility] [address] [id number] [place] [address]- 7708 Jul, [facility] [place] [facility] [address] [facility] [id number] [place] [address]- [address] Jun, [facility] [address] [facility] [id number] [place] [address]- [address] Jun, IMMUNIZATIONS No Known Immunizations SOCIAL HISTORY Never Assessed REASON FOR VISIT Lab PLAN OF CARE Activity Details Pending Test IRON, TIBC, FERRITIN PANEL Pending Test CBC VITAL SIGNS MEDICATIONS Unknown Medications RESULTS No Results PROCEDURES Procedure Date Ordered Result Body Site COMPLETE CBC W/AUTO DIFF WBC Jun 30, 2018 IRON BINDING TEST Jun 30, 2018 ASSAY OF FERRITIN Jun 30, 2018 ASSAY OF IRON Jun 30, 2018 VENIPUNCT, ROUTINE* Jun 30, 2018 INSTRUCTIONS MEDICATIONS ADMINISTERED No Known Medications MEDICAL (GENERAL) HISTORY Type Description Date Medical History Lupus Medical History Hx of UTI Medical History [place] fever + 09/10 Medical History Hx of nasal polyp 2012 Medical History whooping cough Medical History Iron deficiency anemia Surgical History cholecystectomy Dr Nunes Hospitalization History thu Hospitalization History Iron deficiency anemia 11/25/2015
--- OUTSIDE RECORDS SUMMARY | 2018-07-04 17:50 | XMS REPORT ---
Author Author MONI MANE [facility] Address [address] [place] [address] Care Team Providers Care Bookkeeping Machine Operator Name Role Phone KIRSTIE MANEYL Unavailable PROBLEMS Type Condition ICD9-CM Code UBP79-EX Code Onset Dates Condition Status SNOMED Code Problem Anemia D64.9 Active 550783045 Problem [place] fever A21.9 Active 23387660 Problem Environmental allergies Z91.09 Active 131070772 Problem Iron deficiency anemia, unspecified D50.9 Active 73105177 Problem Cough R05 Active 57771816 Problem Thyroid adenoma D34 Active 185785587 Problem Hyperhomocysteinemia E72.11 Active 795553506 Problem Vitamin D deficiency E55.9 Active 94964029 Problem Osteopenia M85.80 Active 750737329 Problem Fibromyalgia M79.7 Active 211200013 Problem Chronic fatigue, unspecified R53.82 Active 84563750 Problem Anemia, iron deficiency D50.9 Active 83537809 Problem Lupus anticoagulant positive R76.0 Active 63286574 Problem Lupus M32.9 Active 38484369 ALLERGIES Substance Reaction Event Type Date Status Cipro Unknown Drug Allergy Sep, Active Penicillins Unknown Non Drug Allergy Sep, Active Sulfa Unknown Non Drug Allergy Sep, Active SOCIAL HISTORY Never Assessed PLAN OF CARE Activity Details Follow Up prn Reason: VITAL SIGNS Height 60 in 2016-10-10 Weight 147.6 lbs 2016-10-10 Temperature 99.0 degrees Fahrenheit 2016-10-10 Heart Rate 90 bpm 2016-10-10 Respiratory Rate 20 2016-10-10 BMI 28.82 kg/m2 2016-10-10 Blood pressure systolic 123 mmHg 2016-10-10 Blood pressure diastolic 74 mmHg 2016-10-10 MEDICATIONS Medication Instructions Dosage Frequency Start Date End Date Duration Status Doxycycline Hyclate 100 mg Orally every 12 hrs 1 tablet 12h Sep, Sep, 10 days Active Lexapro Active Zyrtec Allergy 10 MG Orally Once a day 1 tablet 24h Active Symbicort 160-4.5 MCG/ACT Inhalation Twice a day 2 puffs 12h 15 Sep, 2016 Nov, 30 days Active Plaquenil 400 mg Orally Once a day 1 tablet with food or milk 24h Active Symbicort 160-4.5 MCG/ACT Inhalation Twice a day 2 puffs 12h 10 Jun, 2016 Active RESULTS No Results PROCEDURES No Known procedures IMMUNIZATIONS No Known Immunizations MEDICAL (GENERAL) HISTORY Type Description Date Medical History Lupus Medical History Hx of UTI Medical History [place] fever + 09/10 Medical History Hx of nasal polyp 2012 Medical History whooping cough Medical History Iron deficiency anemia Surgical History cholecystectomy Dr Nunes Hospitalization History thu Hospitalization History Iron deficiency anemia 11/25/2015
--- OUTSIDE RECORDS SUMMARY | 2018-07-04 17:50 | XMS REPORT ---
Author Author BRII JUNG Organization [facility] Address [address] [place] [address] Care Team Providers Care Outside Plant Technician Name Role Phone BRII JUNG Unavailable PROBLEMS Type Condition ICD9-CM Code LFF23-KR Code Onset Dates Condition Status SNOMED Code Problem Anemia D64.9 Active 388594884 Problem [place] fever A21.9 Active 42094835 Problem Environmental allergies Z91.09 Active 854507279 Problem Iron deficiency anemia, unspecified D50.9 Active 51863927 Problem Cough R05 Active 13084841 Problem Thyroid adenoma D34 Active 965282748 Problem Hyperhomocysteinemia E72.11 Active 490915245 Problem Vitamin D deficiency E55.9 Active 84247384 Problem Osteopenia M85.80 Active 880566326 Problem Fibromyalgia M79.7 Active 033236374 Problem Chronic fatigue, unspecified R53.82 Active 49155829 Problem Anemia, iron deficiency D50.9 Active 29520380 Problem Lupus anticoagulant positive R76.0 Active 29943971 Problem Lupus M32.9 Active 98451039 ALLERGIES No Information ENCOUNTERS Encounter Location Date Diagnosis [facility] [id number] [id number] Jun, [facility] [address] [place] [address] 18628- 9765 Jun, Cough R05 ; Anemia, iron deficiency D50.9 and Sore throat J02.9 [facility] [id number] [place] [address] 50487- 2473 Jun, [address] [facility] [address] [place] [address] [id number] Jun, Cough R05 ; Sore throat J02.9 and Anemia, iron deficiency D50.9 [place] [id number] [place] [address] 89224- 0222 07 Jun, [address] [facility] [address] [id number] 03 Jun, 2017 Dysfunction of both eustachian tubes H69.83 and Cough in adult patient R05 [facility] [address] [id number] Nov, Insect bite, initial encounter W57.XXXA [facility] [address] [address] Oct, Gastroenteritis K52.[address] [id number] 15 Sep, 2016 Acute recurrent pansinusitis J01.41 and Cough R05 [address] [address]43- 93[address] 23 Jun, 2016 Environmental allergies Z91.09 ; Chronic fatigue R53.82 ; Anemia, iron deficiency D50.9 ; Lupus M32.9 and Vitamin D deficiency E55.[address] 34992- 9659 15 Jun, 2016 [place] [id number] [place] [address] 95648- 4753 14 Jun, 2016 [place] [id number] [place] [address] 78001- 2089 10 Jun, 2016 Anemia, iron deficiency D50.9 ; Hyperhomocysteinemia E72.11 ; Chronic fatigue R53.82 ; Environmental allergies Z91.09 ; Cough R05 ; Lupus M32.9 ; Vitamin D deficiency E55.9 and Osteopenia M85.80 [facility] [id number] [place] [address] 78256- 1646 Jun, [facility] [id number] [place] [address] 39288- 2733 Apr, [facility] [id number] [place] [address] [id number] Apr, Iron deficiency anemia, unspecified iron deficiency anemia type D50.9 and Cough R05 [place] [address] [id number]- 5457 Nov, [place] [address] 25585- 2813 Nov, Anemia D64.9 [facility] [address] [id number] Oct, Chronic sinusitis, unspecified J32.9 ; Headache R51 ; Forgetfulness R68.89 and Low grade fever R50.9 [place] [address] [id number] Oct, Sinusitis J32.9 and Eustachian tube dysfunction H69.80 [place] [address] 86609- 8332 Oct, Environmental allergies Z91.09 ; Lupus M32.9 ; Chronic fatigue R53.82 ; Hyperhomocysteinemia E72.11 ; Anemia D64.9 and Anemia, iron deficiency D50.9 [place] [id number] [place] [address] [id number] Sep, Eustachian tube dysfunction H69.80 [place] [address] 97677- 9636 16 Apr, 2015 Dysuria 788.1 and Urinary tract infection 599.0 [place] [address] 08916- 8553 14 Nov, 2014 [place] [address] 53411- 7100 13 Nov, 2014 [place] [address] 51586- 7570 10 Oct, 2014 [place] [address] 80886- 8994 Oct, [facility] [place] [facility] [address] [id number] [place] [address]- 4111 Aug, [facility] [place] [facility] [address] [id number] [place] [address]- 0006 Aug, [facility] [place] [facility] [address] [id number] [place] [address]- 9955 Aug, [facility] [place] [facility] [address] [id number] [place] [address]- 9116 Aug, [facility] [place] [facility] [address] [id number] [place] [address]- 0508 May, [facility] [place] [facility] [address] [id number] [place] [address]- 9986 May, [facility] [place] [facility] [address] [id number] [place] [address]- 7289 May, [facility] [place] [facility] [address] [id number] [place] [address]- 2354 May, [facility] [place] [facility] [address] [id number] [place] [address]- 7598 December, [facility] [place] [facility] [address] [id number] [place] [address]- 8822 December, [facility] [place] [facility] [address] [id number], [place] [address] 5085 Oct, [facility] [place] [facility] [address] [id number], [place] [address] 3273 Oct, [facility] [place] [facility] [address] [id number] [place] [address]- 1593 Aug, [facility] [place] [facility] [address] [id number] [place] [address]- 7261 Aug, [facility] [place] [facility] [address] [id number] [place] [address]- 5866 Jul, [facility] [place] [facility] [address] [facility] [id number] [place] [address]- 9470 Jul, [facility] [address] [facility] [id number] [place] [address]- 2430 Jun, [facility] [address] [facility] [id number] [place] [address]- 6064 Jun, IMMUNIZATIONS No Known Immunizations SOCIAL HISTORY Never Assessed REASON FOR VISIT lab PLAN OF CARE VITAL SIGNS MEDICATIONS Unknown Medications RESULTS No Results PROCEDURES No Known procedures INSTRUCTIONS MEDICATIONS ADMINISTERED No Known Medications MEDICAL (GENERAL) HISTORY Type Description Date Medical History Lupus Medical History Hx of UTI Medical History [place] fever + 09/10 Medical History Hx of nasal polyp 2012 Medical History whooping cough Medical History Iron deficiency anemia Surgical History cholecystectomy Dr Nunes Hospitalization History thu Hospitalization History Iron deficiency anemia 11/25/2015
--- OUTSIDE RECORDS SUMMARY | 2018-07-04 17:50 | XMS REPORT ---
Author Author BRII JUNG Organization [facility] Address [address] [place] [address] Care Team Providers Care Enamel Pulverizer Name Role Phone BRII JUNG Unavailable PROBLEMS Type Condition ICD9-CM Code HYA07-VB Code Onset Dates Condition Status SNOMED Code Problem Anemia D64.9 Active 076708431 Problem [place] fever A21.9 Active 82392046 Problem Environmental allergies Z91.09 Active 467649699 Problem Iron deficiency anemia, unspecified D50.9 Active 86681826 Problem Cough R05 Active 66926167 Problem Thyroid adenoma D34 Active 235880035 Problem Hyperhomocysteinemia E72.11 Active 167929397 Problem Vitamin D deficiency E55.9 Active 16419685 Problem Osteopenia M85.80 Active 096817341 Problem Fibromyalgia M79.7 Active 256291583 Problem Chronic fatigue, unspecified R53.82 Active 03378119 Problem Anemia, iron deficiency D50.9 Active 59126165 Problem Lupus anticoagulant positive R76.0 Active 64101108 Problem Lupus M32.9 Active 13546933 ALLERGIES No Information ENCOUNTERS Encounter Location Date Diagnosis [facility] [id number] [place] [address] 84542- 3230 Jun, Cough R05 [facility] [id number] [place] [address] [id number] Jun, Cough R05 and Sore throat J02.9 [facility] [address] 54619- 9398 Jun, Environmental allergies Z91.09 [facility] [id number] [place] [address] [id number] Jun, Dysfunction of both eustachian tubes H69.83 and Cough in adult patient R05 [facility] [id number] [place] [address] [id number] Nov, Insect bite, initial encounter [facility] [address] 32707 -[address]93 Oct, Gastroenteritis K52.9 [facility] [address] [id number] 15 Sep, 2016 Acute recurrent pansinusitis J01.41 and Cough R05 [place] [address] 60211- 5108 Jun, Environmental allergies Z91.09 ; Chronic fatigue R53.82 ; Anemia, iron deficiency D50.9 ; Lupus M32.9 and Vitamin D deficiency E55.9 [place] [address] 30396- 2570 Jun, [place] [address] 38266- 5512 Jun, [place] [address] 91906- 6406 Jun, Anemia, iron deficiency D50.9 ; Hyperhomocysteinemia E72.11 ; Chronic fatigue R53.82 ; Environmental allergies Z91.09 ; Cough R05 ; Lupus M32.9 ; Vitamin D deficiency E55.9 and Osteopenia M85.80 [place] [id number] [place] [address] 36430- 6478 Jun, [place] [address] 18504- 9655 Apr, [place] [address] [id number] Apr, Iron deficiency anemia, unspecified iron deficiency anemia type D50.9 and Cough R05 [place] [id number] [place] [address] 08511- 5705 Nov, [place] [address] [place] 8[address] Nov, Anemia D64.9 [facility] [id number] [place] [address] [id number] Oct, Chronic sinusitis, unspecified J32.9 ; Headache R51 ; Forgetfulness R68.89 and Low grade fever R50.9 [facility] [id number] [place] [address] [id number] Oct, Sinusitis J32.9 and Eustachian tube dysfunction H69.80 [facility] [id number] [place] [address] 642229- 9818 14 Oct, 2015 Environmental allergies Z91.09 ; Lupus M32.9 ; Chronic fatigue R53.82 ; Hyperhomocysteinemia E72.11 ; Anemia D64.9 and Anemia, iron deficiency D50.9 [facility] [id number] [place] [address] [id number] Sep, Eustachian tube dysfunction H69.80 [place] [id number] [place] [address] 49721- 4996 16 Apr, 2015 Dysuria 788.1 and Urinary tract infection 599.0 [facility] [id number] [place] [address] 87678- 0801 14 Nov, 2014 [facility] [address] [place] [address] 82334- 3640 Nov, [facility] [id number] [place] [address] 74484- 7319 Oct, [facility] [id number] [place] [address] 76753- 1670 Oct, [facility] [id number] [place] [address] 960981- 7656 Aug, [facility] [address] [place] [address] 583684- 8622 Aug, [facility] [id number] [place] [address] [place] [address]- 0151 Aug, [facility] [address] [id number] [place] [address]- 4670 Aug, [facility] [address] [facility] [id number] [place] [address]- 0561 May, [facility] [address] [facility] [id number] [place] [address]- 8576 May, [facility] [address] [id number] [place] [address]- 4791 May, [facility] [address] [id number] [place] [address]- 5826 May, [facility] [address] [facility] [id number] [place] [address]- 2647 December, [facility] [address] [facility] [id number], [place] [address]- 4355 December, [facility] [address] [facility] [id number], [place] [address]- 9865 Oct, [facility] [address] [facility] [id number] [place] [address]- 2484 Oct, [facility] [address] [facility] [id number], [place] [address]- 4544 Aug, [facility] [address] [facility] [id number], [place] [address]- 7519 Aug, [facility] [address] [facility] [id number], [place] [address]- 3658 Jul, [facility] [address] [facility] [id number], [place] [address]- 8466 Jul, [facility] [address] [facility] [id number], [place] [address]- 1431 Jun, [facility] [address] [facility] [id number], [place] [address]- 8072 19 Nov, 2013 IMMUNIZATIONS No Known Immunizations SOCIAL HISTORY Never Assessed REASON FOR VISIT Xray (walk-in) MHill RT(R) PLAN OF CARE VITAL SIGNS MEDICATIONS Unknown Medications RESULTS Name Result Date Reference Range Xray : Chest 2 View (IN HOUSE) 2018-06-27 PROCEDURES Procedure Date Ordered Result Body Site X-RAY EXAM CHEST 2 VIEWS Jun 27, 2018 INSTRUCTIONS MEDICATIONS ADMINISTERED No [...]
--- OUTSIDE RECORDS SUMMARY | 2018-07-04 17:50 | XMS REPORT ---
Author Author MONI MANE [facility] Address [address] [place] [address] Care Team Providers Care Private Branch Exchange Installer Name Role Phone KIRSTIE MANEYL Unavailable PROBLEMS Type Condition ICD9-CM Code ZEX08-VK Code Onset Dates Condition Status SNOMED Code Problem Anemia D64.9 Active 297948358 Problem [place] fever A21.9 Active 38455582 Problem Environmental allergies Z91.09 Active 889072955 Problem Iron deficiency anemia, unspecified D50.9 Active 62729780 Problem Cough R05 Active 48740960 Problem Thyroid adenoma D34 Active 734195233 Problem Hyperhomocysteinemia E72.11 Active 092956533 Problem Vitamin D deficiency E55.9 Active 29039221 Problem Osteopenia M85.80 Active 288167345 Problem Fibromyalgia M79.7 Active 019137475 Problem Chronic fatigue, unspecified R53.82 Active 90669859 Problem Anemia, iron deficiency D50.9 Active 45517875 Problem Lupus anticoagulant positive R76.0 Active 79322151 Problem Lupus M32.9 Active 02897257 ALLERGIES No Information ENCOUNTERS Encounter Location Date Diagnosis [facility] [place] [id number] [place] [address] 35389- 4769 Jun, Environmental allergies Z91.09 [facility] [id number] [place] [address] [id number] Jun, Dysfunction of both eustachian tubes H69.83 and Cough in adult patient R05 [facility] [place] [id number] [place] [address] [id number] Nov, Insect bite, initial encounter W57.XXXA [facility] [id number] [place] [address] 76207 -8899 Oct, Gastroenteritis K52.9 [facility] [place] [address] [id number] 15 Sep, 2016 Acute recurrent pansinusitis J01.41 and Cough R05 [place] [address] 14507- 6164 Jun, Environmental allergies Z91.09 ; Chronic fatigue R53.82 ; Anemia, iron deficiency D50.9 ; Lupus M32.9 and Vitamin D deficiency E55.9 [place] [address] 87168- 2369 Jun, [place] [address] 22636- 8640 Jun, [place] [address] 03038- 6623 Jun, Anemia, iron deficiency D50.9 ; Hyperhomocysteinemia E72.11 ; Chronic fatigue R53.82 ; Environmental allergies Z91.09 ; Cough R05 ; Lupus M32.9 ; Vitamin D deficiency E55.9 and Osteopenia M85.80 [place] [address] 33095- 3438 Jun, [place] [address] 51509- 0929 Apr, [place] [address] [id number] Apr, Iron deficiency anemia, unspecified iron deficiency anemia type D50.9 and Cough R05 [place] [address] 11698- 2373 Nov, [place] [address] 88912- 6073 Nov, Anemia D64.9 [place] [address] [id number] Oct, Chronic sinusitis, unspecified J32.9 ; Headache R51 ; Forgetfulness R68.89 and Low grade fever R50.9 [place] [id number] [id number] 21 Oct, 2015 Sinusitis J32.9 and Eustachian tube dysfunction H69.80 [facility] [place] [id number] [place] [address] 36437- 9826 14 Oct, 2015 Environmental allergies Z91.09 ; Lupus M32.9 ; Chronic fatigue R53.82 ; Hyperhomocysteinemia E72.11 ; Anemia D64.9 and Anemia, iron deficiency D50.9 [facility] [id number] [place] [address] [id number] 02 Sep, 2015 Eustachian tube dysfunction H69.80 [facility] [place] [id number] [place] [address] 42152- 6606 16 Apr, 2015 Dysuria 788.1 and Urinary tract infection 599.0 [facility] [place] [id number] [place] [address] 07660- 7442 14 Nov, 2014 [facility] [place] [id number] [place] [address] 14311- 1929 Nov, [facility] [place] [id number] [place] [address] 01702- 7686 Oct, [facility] [place] [id number] [place] [address] 07794- 7789 Oct, [facility] [place] [id number] [place] [address] 58722- 2932 Aug, [facility] [place] [id number] [place] [address] 28045- 3795 Aug, [facility] [place] [id number] [place] [address] 39620- 0426 Aug, [facility] [place] [id number] [place] [address] 63069- 7186 Aug, [facility] [place] [id number] [place] [address] 85395- 5556 May, [facility] [place] [address] [id number], [place] [address]- 2546 May, [facility] [place] [address], [place] [address]- 0366 May, [facility] [place] [address] [facility] [id number], [place] [address]- 2546 May, [facility] [place] [address], [place] [address]- 9086 December, [facility] [place] [address] [facility] [id number], [place] [address]- 2546 December, [facility] [place] [address], [place] [address]- 5876 Oct, [facility] [place] [address], [place] [address]- 9326 Oct, [facility] [place] [address], [place] [address]- 1396 Aug, [facility] [place] [address], [place] [address]- 7753 Aug, [facility] [place] [address], [place] [address]- 2576 Jul, [facility] [place] [address] [id number], [place] [address]- 8796 Jul, [facility] [place] [address] [id number], [place] [address]- 5696 Jun, [facility] [place] [address] [facility] [id number], [place] [address]- 9626 Jun, IMMUNIZATIONS No Known Immunizations SOCIAL HISTORY Never Assessed REASON FOR VISIT persistent cough PLAN OF CARE VITAL SIGNS MEDICATIONS Medication Instructions Dosage Frequency Start Date End Date Duration Status Doxycycline Hyclate 100 MG Orally every 12 hrs 1 capsule 12h 07 Jun, 2017 Jun, 7 days Active Symbicort 160-4.5 MCG/ACT Inhalation Twice a day 2 puffs 12h Jun, 14 days Active RESULTS No Results PROCEDURES No Known [...]
--- OUTSIDE RECORDS SUMMARY | 2018-07-04 17:51 | XMS REPORT ---
Author Author MAGO DELACRUZ Organization [facility] Address [address] [place] [address] Care Team Providers Care Hand Candy Dipper Name Role Phone MAGO DELACRUZ Unavailable PROBLEMS Type Condition ICD9-CM Code RIN65-KA Code Onset Dates Condition Status SNOMED Code Problem Anemia D64.9 Active 341152411 Problem [place] fever A21.9 Active 83754322 Problem Environmental allergies Z91.09 Active 920646253 Problem Iron deficiency anemia, unspecified D50.9 Active 68064284 Problem Cough R05 Active 36310834 Problem Thyroid adenoma D34 Active 658061015 Problem Hyperhomocysteinemia E72.11 Active 723098172 Problem Vitamin D deficiency E55.9 Active 73821594 Problem Osteopenia M85.80 Active 731143606 Problem Fibromyalgia M79.7 Active 048805028 Problem Chronic fatigue, unspecified R53.82 Active 80572577 Problem Anemia, iron deficiency D50.9 Active 23537288 Problem Lupus anticoagulant positive R76.0 Active 45395350 Problem Lupus M32.9 Active 85935862 ALLERGIES Substance Reaction Event Type Date Status Cipro Unknown Drug Allergy Oct, Active Penicillins Unknown Non Drug Allergy Oct, Active Sulfa Unknown Non Drug Allergy Oct, Active SOCIAL HISTORY Never Assessed PLAN OF CARE Activity Details Follow Up prn Reason: VITAL SIGNS Height 60 in 2016-11-05 Weight 147.0 lbs 2016-11-05 Temperature 99.6 degrees Fahrenheit 2016-11-05 Heart Rate 90 bpm 2016-11-05 Respiratory Rate 20 2016-11-05 BMI 28.71 kg/m2 2016-11-05 Blood pressure systolic 110 mmHg 2016-11-05 Blood pressure diastolic 70 mmHg 2016-11-05 MEDICATIONS Medication Instructions Dosage Frequency Start Date End Date Duration Status Symbicort 160-4.5 MCG/ACT Inhalation Twice a day 2 puffs 12h 10 Jun, 2016 Active Plaquenil 400 mg Orally Once a day 1 tablet with food or milk 24h Active RESULTS No Results PROCEDURES No Known procedures IMMUNIZATIONS No Known Immunizations MEDICAL (GENERAL) HISTORY Type Description Date Medical History Lupus Medical History Hx of UTI Medical History [place] fever + 09/10 Medical History Hx of nasal polyp 2012 Medical History whooping cough Medical History Iron deficiency anemia Surgical History cholecystectomy Dr Nunes Hospitalization History [facility] Hospitalization History Iron deficiency anemia 11/25/2015
--- OUTSIDE RECORDS SUMMARY | 2018-07-04 17:51 | XMS REPORT ---
Author Author MONI MANE [facility] Address [address] [place] [address] Care Team Providers Care Foam Molder Name Role Phone MONI MANE Unavailable PROBLEMS Type Condition ICD9-CM Code XAT14-UR Code Onset Dates Condition Status SNOMED Code Problem Anemia D64.9 Active 380051071 Problem [place] fever A21.9 Active 98269293 Problem Environmental allergies Z91.09 Active 542672604 Problem Iron deficiency anemia, unspecified D50.9 Active 54698927 Problem Cough R05 Active 76973565 Problem Thyroid adenoma D34 Active 435866124 Problem Hyperhomocysteinemia E72.11 Active 268996267 Problem Vitamin D deficiency E55.9 Active 19939322 Problem Osteopenia M85.80 Active 890823631 Problem Fibromyalgia M79.7 Active 591593255 Problem Chronic fatigue, unspecified R53.82 Active 60266337 Problem Anemia, iron deficiency D50.9 Active 47718566 Problem Lupus anticoagulant positive R76.0 Active 71572463 Problem Lupus M32.9 Active 29706455 ALLERGIES Substance Reaction Event Type Date Status Cipro Unknown Drug Allergy Jun, Active Penicillins Unknown Non Drug Allergy Jun, Active Sulfa Unknown Non Drug Allergy Jun, Active ENCOUNTERS Encounter Location Date Diagnosis [facility] [id number] [address] Jun, Environmental allergies Z91.09 [facility] [address] [id number] Jun, Dysfunction of both eustachian tubes H69.83 and Cough in adult patient R05 [facility] [address] [id number] Nov, Insect bite, initial encounter W57.XXXA [facility] [id number] [place] [phone] 13 Oct, 2016 Gastroenteritis K52.9 [place] [id number] [id number] 15 Sep, 2016 Acute recurrent pansinusitis J01.41 and Cough R05 [place] [address] [address] Jun, Environmental allergies Z91.09 ; Chronic fatigue R53.82 ; Anemia, iron deficiency D50.9 ; Lupus M32.9 and Vitamin D deficiency E55.9 [place] [address] [address] Jun, [place] [address] [address] Jun, [place] [address] [address] Jun, Anemia, iron deficiency D50.9 ; Hyperhomocysteinemia E72.11 ; Chronic fatigue R53.82 ; Environmental allergies Z91.09 ; Cough R05 ; Lupus M32.9 ; Vitamin D deficiency E55.9 and Osteopenia M85.80 [place] [id number] [place] [address] Jun, [place] [address] [address] Apr, [place] [id number] [place] [id number] Apr, Iron deficiency anemia, unspecified iron deficiency anemia type D50.9 and Cough R05 [place] [address] [address] Nov, [place] [address] [address] Nov, Anemia D64.9 [place] [address] [id number] Oct, Chronic sinusitis, unspecified J32.9 ; Headache R51 ; Forgetfulness R68.89 and Low grade fever R50.9 [facility] [id number] [place] [id number] Oct, Sinusitis J32.9 and Eustachian tube dysfunction H69.80 [facility] [address] [address] 14 Oct, 2015 Environmental allergies Z91.09 ; Lupus M32.9 ; Chronic fatigue R53.82 ; Hyperhomocysteinemia E72.11 ; Anemia D64.9 and Anemia, iron deficiency D50.9 [facility] [id number] [place] [id number] 02 Sep, 2015 Eustachian tube dysfunction H69.80 [place] [id number] [id number] 16 Apr, 2015 Dysuria 788.1 and Urinary tract infection 599.0 [facility] [id number] [place] [address] 14 Nov, 2014 [facility] [address] [address] Nov, [facility] [id number] [place] [address] Oct, [facility] [id number] [place] [address] Oct, [facility] [id number] [place] [id number] Aug, [facility] [id number] [place] [address] [id number] [address] Aug, [facility] [id number] [place] [address] [id number] Aug, [facility] [id number] [place] [address] [id number]- [address] Aug, [place] [address] [facility] [id number] [address] May, [facility] [address] [facility] [id number] [address] May, [facility] [address] [facility] [id number] [address] May, [facility] [address] [facility] [id number] May, [facility] [address] [facility] [id number] [address] December, [facility] [address] [address] December, [facility] [address] [address] Oct, [facility] [address] [address] Oct, [facility] [id number] [address] Aug, [facility] [id number] [address] Aug, [facility] [id number] [address] Jul, [facility] [id number] [address] Jul, [facility] [id number] [address] Jun, [facility] [id number] [id number] Jun, IMMUNIZATIONS No Known Immunizations SOCIAL HISTORY Never Assessed REASON FOR VISIT sinus issues-[facility] 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 PLAN OF CARE Activity Details Follow Up prn Reason: VITAL SIGNS Height 60 in 2017-06-28 Weight 147 lbs 2017-06-28 Temperature 98 degrees Fahrenheit 2017-06-28 Heart Rate 82 bpm 2017-06-28 Respiratory Rate 18 2017-06-28 BMI 28.71 kg/m2 2017-06-28 Blood pressure systolic 118 mmHg 2017-06-28 Blood pressure diastolic 70 mmHg 2017-06-28 MEDICATIONS Medication Instructions Dosage Frequency Start Date End Date Duration Status Zyrtec Allergy 10 MG Orally Once a day 1 tablet 24h Active Symbicort 160-4.5 MCG/ACT Inhalation Twice a day 2 puffs 12h 10 Jun, 2016 Active Lexapro Active Tessalon Perles 100 mg Orally Three times a day prn cough 1-2 capsule as needed Jun, Jun, 07 days Active Azithromycin 250 MG Orally Once a day 2 tablets on the first day, then 1 tablet daily for 4 days 24h Jun, Jun, 5 day(s) Active Plaquenil 400 mg Orally Once a [...]
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
[2018-07-04] MEDS ORDERED: ASPIRIN 81 MG CHEW (CHILDREN'S ASA) PO ONE (18:15)
[2018-07-04] MEDS ORDERED: RT-ALBUTEROL/IPRATROPIUM 3 ML (DUONEB) VIAL INH ONE (18:15)
[2018-07-04] MEDS ORDERED: ONDANSETRON 4 MG/2 ML (SDV) Z0FRAN IVP ONE ×2 (18:15→22:00)
--- NOTE | 2018-07-04 18:59 | Diagnostic Imaging Report ---
INDICATION: Chest pain in the center of the chest for 12 days. COMPARISON STUDY: Chest from May 25. FINDINGS: Frontal and lateral views of the chest demonstrate the lungs to be clear. The heart, mediastinum, pulmonary vascularity and visualized bony thorax are normal. IMPRESSION: Normal chest. Dictated by: Dictated on workstation # [id number]
--- NOTE | 2018-07-04 19:17 | ED Chest Pain ---
General Chief Complaint: Respiratory Problems Stated Complaint: CP Nursing Triage Note: PT WAS SEEN BY PCP TWELVE DAYS AGO FOR NV AND FEVER WITH BROCHITIS. PERSCRIBED ANTIBIOTIC AND STEROID. TODAY PRESENTS TO THE ED D/T INCREASING WORK OF BREATHING AND MID STERNAL CHEST PAIN. Nursing Sepsis Screen: Possible Sepsis Risk Source: patient Exam Limitations: no limitations History of Present Illness Date Seen by Provider: Jul 04, 2018 Time Seen by Provider: 17:56 Initial Comments This 43-year-old woman presents to the emergency room with complaints of chest pain in the left upper chest. She has recently been treated for bronchitis. She finished a course of doxycycline and is now being treated with cefprozil. She also finished a short course of prednisone 40 mg daily 5 days. She has been experiencing some acid reflux and nausea for almost 2 weeks. She was seen at Dr. Agarwal's office yesterday. Chest pain started around 16:30 today. She also has had "racing heart". She is presently on her menstrual cycle denies as her has had a vasectomy. She does feel short of breath. She rates her pain as 7/10 and describes as a heaviness. She had a "low-grade fever" yesterday at the office. She gives a history of lupus and "sticky blood". She is in sinus tachycardia on the monitor. She has been experiencing acid reflux and has been taking omeprazole. She takes Plaquenil. Allergies and Home Medications Allergies Coded Allergies: Penicillins (Verified Allergy, Intermediate, HIVES AND SWELLING, 07/04/18) Home Medications Aspirin 81 Mg Tablet., 81 MG PO DAILY, (Reported) Escitalopram Oxalate 20 Mg Tablet, 20 MG PO DAILY, (Reported) Hydroxychloroquine Sulfate 200 Mg Tab, 400 MG PO DAILY, (Reported) Omeprazole 40 Mg Capsule., 40 MG PO DAILY, (Reported) Patient Home Medication List Home Medication List Reviewed: Yes Review of Systems Review of Systems Constitutional: no symptoms reported EENTM: No Symptoms Reported Respiratory: See HPI Cardiovascular: See HPI Gastrointestinal: See HPI Genitourinary: No Symptoms Reported Musculoskeletal: no symptoms reported Skin: no symptoms reported Psychiatric/Neurological: No Symptoms Reported Endocrine: No Symptoms Reported Hematologic/Lymphatic: No Symptoms Reported Past Usmjrmc-Dqeari-Mpimgu Hx Patient Social History Alcohol Use: Denies Use Recreational Drug Use: No Smoking Status: Never a Smoker 2nd Hand Smoke Exposure: No Recent Foreign Travel: No Contact w/Someone Who Travel: No Recent Infectious Disease Expo: No Recent Hopitalizations: No Immunizations Up To Date Tetanus Booster (TDap): More than 5yrs Seasonal Allergies Seasonal Allergies: No Past Medical History Surgeries: Yes Gallbladder Respiratory: No Cardiac: Yes (fluid retention) Neurological: No : No Last Menstrual Period: Jul 03, 2018 Reproductive Disorders: No Genitourinary: No Gastrointestinal: No Musculoskeletal: Yes (LUPUS) Endocrine: Yes Hypothyroidsim, Lupus HEENT: No Cancer: No Psychosocial: Yes (OCD) Integumentary: No Blood Disorders: No Physical Exam Vital Signs Vital Signs - First Documented 07/04/18 17:52 Temp 98.0 Pulse 100 Resp 22 B/P (MAP) 150/81 (104) Pulse Ox 98 O2 Delivery Room Air Capillary Refill : Less Than 3 Seconds Height, Weight, BMI Height: 5'1.00" Weight: 145lbs. 0oz. 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 Norm as Tested Skin: Normal Color, Warm/Dry Progress/Results/Core Measures Results/Orders Lab Results Laboratory Tests Test 07/04/18 19:28 Range/Units White Blood Count 8.3 4.3-11.0 10^3/uL Red Blood Count 4.70 4.35-5.85 10^6/uL Hemoglobin 13.4 11.5-16.0 G/DL Hematocrit 40 35-52 % Mean Corpuscular Volume 84 80-99 FL Mean Corpuscular Hemoglobin 29 25-34 PG Mean Corpuscular Hemoglobin Concent 34 32-36 G/DL Red Cell Distribution Width 12.6 10.0-14.5 % Platelet Count 413 H 130-400 10^3/uL Mean Platelet Volume 8.3 7.4-10.4 FL Neutrophils (%) (Auto) 65 42-75 % Lymphocytes (%) (Auto) 24 12-44 % Monocytes (%) (Auto) 11 0-12 % Eosinophils (%) (Auto) 1 0-10 % Basophils (%) (Auto) 0 0-10 % Neutrophils # (Auto) 5.4 1.8-7.8 X 10^3 Lymphocytes # (Auto) 2.0 1.0-4.0 X 10^3 Monocytes # (Auto) 0.9 0.0-1.0 X 10^3 Eosinophils # (Auto) 0.0 0.0-0.3 10^3/uL Basophils # (Auto) 0.0 0.0-0.1 10^3/uL Prothrombin Time 12.2 12.2-14.7 SEC INR Comment 0.9 0.8-1.4 Activated Partial Thromboplast Time 28 24-35 SEC D-Dimer 0.30 0.00-0.49 UG/ML Sodium Level 132 L 135-145 MMOL/L Potassium Level 3.3 L 3.6-5.0 MMOL/L Chloride Level 95 L 98-107 MMOL/L Carbon Dioxide Level 26 21-32 MMOL/L Anion Gap 11 5-14 MMOL/L Blood Urea Nitrogen 10 7-18 MG/DL Creatinine 0.68 0.60-1.30 MG/DL Estimat Glomerular Filtration Rate > 60 BUN/Creatinine Ratio 15 Glucose Level 106 H 70-105 MG/DL Calcium Level 9.8 8.5-10.1 MG/DL Corrected Calcium 8.5-10.1 MG/DL Magnesium Level 2.0 1.8-2.4 MG/DL Total Bilirubin 0.5 0.1-1.0 MG/DL Aspartate Amino Transf (AST/SGOT) 14 5-34 U/L Alanine Aminotransferase (ALT/SGPT) 24 0-55 U/L Alkaline Phosphatase 34 L 40-136 U/L Myoglobin 32.4 10.0-92.0 NG/ML Troponin I < 0.30 <0.30 NG/ML Total Protein 7.6 6.4-8.2 GM/DL Albumin 4.6 H 3.2-4.5 GM/DL TSH [place] Testing 1.10 0.35-4.94 UIU/ML Micro Results Microbiology 07/04/18 Influenza Types A,B Antigen (JAMES) - Final, Complete My Orders Orders - VERO JONES MD Cbc With Automated Diff (07/04/18 18:10) Magnesium (07/04/18 18:10) Ekg Tracing (07/04/18 18:10) Cardiac Profile 1 (07/04/18 18:10) Comprehensive Metabolic Panel (07/04/18 18:10) Myoglobin Serum (07/04/18 18:10) Protime With Inr (07/04/18 18:10) Partial Thromboplastin Time (07/04/18 18:10) O2 (07/04/18 18:10) Monitor-Rhythm Ecg Trace Only (07/04/18 18:10) Lipid Panel (07/05/18 06:00) Aspirin Chewable Tablet (Baby Aspirin Ch (07/04/18 18:15) Saline Lock/Iv-Start (07/04/18 18:10) Fibrin Degradation Products (07/04/18 18:10) Influenza A And B Antigens (07/04/18 18:10) Ondansetron Injection (Zofran Injectio (07/04/18 18:15) Chest Pa/Lat (2 View) (07/04/18 18:11) Albuterol/Ipra Inhalation Soln (Duoneb I (07/04/18 18:15) Svn Small Volume Nebulizer (07/04/18 18:11) Lidocaine 2% Viscous 15 Ml (Xylocaine Vi (07/04/18 19:30) Antacid Suspension (Mylanta Suspension (07/04/18 19:30) Thyroid Analyzer (07/04/18 19:22) Saline Lock/Iv-Start (07/04/18 19:22) Ns Iv 1000 Ml (Sodium Chloride 0.9%) (07/04/18 19:22) Nitroglycerin 0.4 Mg Btl 25's (Nitrostat (07/04/18 20:45) Ketorolac Injection (Toradol Injection) (07/04/18 21:00) Ondansetron Injection (Zofran Injectio (07/04/18 22:00) Fentanyl Injection (Sublimaze Injection (07/04/18 22:00) Medications Given in ED Current Medications Medications Dose Ordered Sig/Daksha Route Start Time Stop Time Status Last Admin Dose Admin Al Hydrox/Mg Hydrox/Simethicone 30 ml ONCE ONCE PO 07/04/18 19:30 07/04/18 19:31 DC 07/04/18 19:33 30 ML Albuterol/ Ipratropium 3 ml ONCE ONCE INH 07/04/18 18:15 07/04/18 18:16 DC 07/04/18 18:25 3 ML Aspirin 324 mg ONCE ONCE PO 07/04/18 18:15 07/04/18 18:16 DC 07/04/18 19:20 324 MG Fentanyl Citrate 50 mcg ONCE ONCE IVP 07/04/18 22:00 07/04/18 22:01 DC 07/04/18 22:10 50 MCG Ketorolac Tromethamine 15 mg ONCE ONCE IVP 07/04/18 21:00 07/04/18 21:01 DC 07/04/18 21:41 15 MG Lidocaine HCl 15 ml ONCE ONCE PO 07/04/18 19:30 07/04/18 19:31 DC 07/04/18 19:33 15 ML Nitroglycerin 0.4 mg UD PRN SL 07/04/18 20:45 07/04/18 20:47 DC 07/04/18 20:47 0.4 MG Ondansetron HCl 4 mg ONCE ONCE IVP 07/04/18 22:00 07/04/18 22:01 DC 07/04/18 21:54 4 MG Ondansetron HCl 8 mg ONCE ONCE IVP 07/04/18 18:15 07/04/18 18:16 DC 07/04/18 19:27 8 MG Sodium Chloride 1,000 ml @ 0 mls/hr Q0M ONCE IV 07/04/18 19:22 07/04/18 19:24 DC 07/04/18 19:33 1,000 MLS/HR Vital Signs/I&O 07/04/18 07/04/18 07/04/18 17:52 17:53 18:26 Temp 98.0 Pulse 100 Resp 22 B/P (MAP) 150/81 (104) Pulse Ox 98 98 98 O2 Delivery Room Air Room Air Room Air Blood Pressure Mean: 104 Progress Progress Note : Progress Note Chest pain workup was pursued. Patient received aspirin. Symptoms appeared atypical in nature. Multiple treatments were provided in an attempt to treat her pain. Patient did not have a favorable response to nitroglycerin, GI cocktail, or Toradol. Fentanyl finally relieved her pain. Chest x-ray revealed a density over the left lower lung base. This was felt to be in the location of the nipple and likely a nipple shadow. However, this cannot be guaranteed without doing further imaging with CT. Patient was offered CT with discussion of risks and benefits, but declined due to concerns about radiation exposure. She would like to think about this further before committing to CT scan. Case was discussed with Dr. Roldan who suggested admission for observation. Patient is agreeable. Initial ECG Impression Date: Jul 04, 2018 Initial ECG Impression Time: 17:52 Initial ECG Rate: 98 Initial ECG Rhythm: S.Tach Comment Sinus tachycardia with no ST elevation or depression. No abnormal intervals or axis deviation. Diagnostic Imaging Diagonstic Imaging: Xray Plain Films/CT/US/NM/MRI: chest Comments Chest x-ray viewed by me and report reviewed. See report below: NAME: ROBBIE PIÑA [facility] REC#: [id number] PT STATUS: REG ER : 1975 PHYSICIAN: VERO JONES MD ADMIT DATE: 07/04/18/ER Signed Date of Exam:07/04/18 CHEST PA/LAT (2 VIEW) INDICATION: Chest pain in the center of the chest for 12 days. COMPARISON STUDY: Chest from May 25. FINDINGS: Frontal and lateral views of the chest demonstrate the lungs to be clear. The heart, mediastinum, pulmonary vascularity and visualized bony thorax are normal. IMPRESSION: Normal chest. Dictated by: Dictated on workstation # [id number] Dict: 07/04/181855 Trans: 07/04/181899 LOCATED WITHIN [facility] [id number] Interpreted by: BECCA COE MD Electronically signed by: BECCA COE MD 07/04/181899 Departure Communication (Admissions) Time/Spoke to Admitting Phy: 21:55 Dr. Delaney Time/Spoke to Consulting Phy: 21:50 Dr. Roldan Impression Primary Impression: Chest pain Qualified Codes: R07.9 - Chest pain, unspecified Additional Impressions: Acute bronchitis Qualified Codes: J20.9 - Acute bronchitis, unspecified Abnormal chest x-ray Disposition: ADMITTED INPATIENT Condition: Stable Admissions Decision to Admit Reason: Admit from ER (General) Decision to Admit/Date: Jul 04, 2018 Time/Decision to Admit Time: 21:50 Departure-Patient Inst. Referrals: LIDIA AGARWAL DO (PCP/Family) Primary Care Physician VERO JONES MD Jul 04, 2018 19:17
[2018-07-04] MEDS ORDERED: NS IV 1000 ML 1,000 ML IV ONE (19:22)
[2018-07-04] MEDS ORDERED: ANTACID SUSP 30 ML UDC (MYLANTA) PO ONE (19:30)
[2018-07-04] MEDS ORDERED: LIDOCAINE 2% VISCOUS 15 ML UDC PO ONE (19:30)
[2018-07-04 19:37] LABS: BASOPHILS % (AUTO) 0 % (0-10); EOSINOPHILS % (AUTO) 1 % (0-10); HEMATOCRIT 40 % (35-52); HEMOGLOBIN 13.4 G/DL (11.5-16.0); LYMPHOCYTES % (AUTO) 24 % (12-44); MEAN CORPUSCULAR HEMOGLOBIN 29 PG (25-34); MEAN CORPUSCULAR HGB CONC 34 G/DL (32-36); MEAN CORPUSCULAR VOLUME 84 FL (80-99); MEAN PLATELET VOLUME 8.3 FL (7.4-10.4); MONOCYTES # (AUTO) 0.9 X 10^3 (0.0-1.0); MONOCYTES % (AUTO) 11 % (0-12); NEUTROPHILS # (AUTO) 5.4 X 10^3 (1.8-7.8); NEUTROPHILS % (AUTO) 65 % (42-75); PLATELET COUNT 413 10^3/uL (130-400); RED CELL DISTRIBUTION WIDTH 12.6 % (10.0-14.5); WHITE BLOOD COUNT 8.3 10^3/uL (4.3-11.0)
[2018-07-04 19:49] LABS: INR 0.9 (0.8-1.4); PROTHROMBIN TIME PATIENT 12.2 SEC (12.2-14.7)
[2018-07-04 19:56] LABS: ALANINE AMINOTRANSFERASE 24 U/L (0-55); ALBUMIN 4.6 GM/DL (3.2-4.5); ALKALINE PHOSPHATASE 34 U/L (40-136); BILIRUBIN,TOTAL 0.5 MG/DL (0.1-1.0); BUN/CREATININE RATIO 15; CALCIUM 9.8 MG/DL (8.5-10.1); CARBON DIOXIDE 26 MMOL/L (21-32); CHLORIDE 95 MMOL/L (98-107); CREATININE SERUM 0.68 MG/DL (0.60-1.30); GFR ESTIMATED > 60; GLUCOSE 106 MG/DL (70-105); POTASSIUM 3.3 MMOL/L (3.6-5.0); SODIUM 132 MMOL/L (135-145); TOTAL PROTEIN 7.6 GM/DL (6.4-8.2)
[2018-07-04 20:03] LABS: MYOGLOBIN SERUM 32.4 NG/ML (10.0-92.0)
[2018-07-04] MEDS: NITROGLYCERIN 0.4 MG SL TABS BTL 25'S SL PRN ×3 (20:35→20:47)
[2018-07-04] MEDS ORDERED: KETOROLAC 30 MG/ML VIAL IVP ONE (21:00)
[2018-07-04] MEDS ORDERED: fentaNYL INJECTION 100 MCG/2 ML AMP IVP ONE ×2 (22:00→23:45)
--- OUTSIDE RECORDS SUMMARY | 2018-07-04 22:45 | XMS REPORT | Clinical Summary ---
Author Author [facility] Address Unknown Phone Unavailable Care Team Providers Care Paster Hat Lining Name Role Phone PCP Unavailable Allergies Not [...]
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
[2018-07-04] MEDS ORDERED: NS W/KCL 20 MEQ/L 1,000 ML IV SCH (23:45)
[2018-07-04] MEDS ORDERED: ONDANSETRON 4 MG/2 ML (SDV) Z0FRAN IV PRN (23:45)
[2018-07-05] VITALS (11 sets, daily range): BP systolic 93–115; BP diastolic 55–74
[2018-07-05] MEDS ORDERED: PATIENT MAY USE OWN MEDS, ALL PO SCH
[2018-07-05] MEDS ORDERED: RT-ALBUTEROL/IPRATROPIUM 3 ML (DUONEB) VIAL INH PRN (00:45)
[2018-07-05] MEDS: PANTOPRAZOLE 40 MG (PROTONIX) TAB PO SCH ×2 (00:45→06:01)
[2018-07-05] MEDS ORDERED: ASPI-586 PO (01:46)
[2018-07-05] MEDS ORDERED: OMEP40CA36 PO (01:46)
[2018-07-05] MEDS ORDERED: ESCI20TA PO (01:46)
[2018-07-05 03:20] LABS: CHOLESTEROL 165 MG/DL (< 200); HDL CHOLESTEROL 42 MG/DL (40-60); TRIGLYCERIDES 106 MG/DL (<150); VLDL CHOLESTEROL 21 MG/DL (5-40)
[2018-07-05] MEDS: fentaNYL INJECTION 100 MCG/2 ML AMP IV PRN ×2 (03:40→08:00)
[2018-07-05] MEDS ORDERED: ASPIRIN E.C. 81 MG (ECOTRIN) TAB PO SCH ×2 (09:00)
--- NOTE | 2018-07-05 09:11 | Consultation-Cardiology ---
HPI-Cardiology Cardiology Consultation Date of Consultation 07/05/18 Date of Admission Time Seen by Provider: 09:04 Indication: Chest pain HPI Mrs. Moreno is a 43-year-old lady with history of systemic lupus, has been fighting an upper respiratory tract infection for the past week, treated with 5 days of steroids and antibiotics. Yesterday she noted that she has become more dyspneic at rest and with minimal exertion and had some chest pain, reported chest discomfort in the lower retrosternal area persistent, did not respond to nitroglycerin, did not respond to GI cocktail. [place] better after sentinel injection. Still having pain waxing and waning. Denied any shortness of breath. No syncope or near syncopal episodes. No claudications. Home Medications & Allergies Allergies: Coded Allergies: Penicillins (Verified Allergy, Intermediate, HIVES AND SWELLING, 07/04/18) Home Medication List Reviewed: Yes JKZ-Uomjra-Yktnmc Hx Patient Social History Marital Status: Employed/Student: employed Alcohol Use: Denies Use Recreational Drug Use: No Smoking Status: Never a Smoker 2nd Hand Smoke Exposure: No Recent Foreign Travel: No Recent Infectious Disease Expo: No Recent Hopitalizations: No Physical Abuse Screen: No Sexual Abuse: No Immunizations Up To Date Tetanus Booster (TDap): More than 5yrs Past Medical History Past medical history is discussed below Family Medical History Family Medical Hx family history of hypertension Review of Systems Constitutional: no symptoms reported, see HPI EENTM: see HPI, no symptoms reported Respiratory: see HPI; No cough; dyspnea on exertion; No hemoptysis, No orthopnea, No phlegm; short of breath; No stridor, No wheezing, No other Cardiovascular: see HPI, chest pain; No edema, No Hx of Intervention, No palpitations, No syncope, No vascular heart diseas, No other Gastrointestinal: no symptoms reported, see HPI Genitourinary: no symptoms reported, see HPI Musculoskeletal: see HPI, back pain Skin: no symptoms reported, see HPI Psychiatric/Neurological: No Symptoms Reported, See HPI Reviewed Test Results Reviewed Test Results Lab Laboratory Tests Test 07/04/18 19:28 07/05/18 02:30 Range/Units White Blood Count 8.3 4.3-11.0 10^3/uL Red Blood Count 4.70 4.35-5.85 10^6/uL Hemoglobin 13.4 11.5-16.0 G/DL Hematocrit 40 35-52 % Mean Corpuscular Volume 84 80-99 FL Mean Corpuscular Hemoglobin 29 25-34 PG Mean Corpuscular Hemoglobin Concent 34 32-36 G/DL Red Cell Distribution Width 12.6 10.0-14.5 % Platelet Count 413 H 130-400 10^3/uL Mean Platelet Volume 8.3 7.4-10.4 FL Neutrophils (%) (Auto) 65 42-75 % Lymphocytes (%) (Auto) 24 12-44 % Monocytes (%) (Auto) 11 0-12 % Eosinophils (%) (Auto) 1 0-10 % Basophils (%) (Auto) 0 0-10 % Neutrophils # (Auto) 5.4 1.8-7.8 X 10^3 Lymphocytes # (Auto) 2.0 1.0-4.0 X 10^3 Monocytes # (Auto) 0.9 0.0-1.0 X 10^3 Eosinophils # (Auto) 0.0 0.0-0.3 10^3/uL Basophils # (Auto) 0.0 0.0-0.1 10^3/uL Prothrombin Time 12.2 12.2-14.7 SEC INR Comment 0.9 0.8-1.4 Activated Partial Thromboplast Time 28 24-35 SEC D-Dimer 0.30 0.00-0.49 UG/ML Sodium Level 132 L 135-145 MMOL/L Potassium Level 3.3 L 3.6-5.0 MMOL/L Chloride Level 95 L 98-107 MMOL/L Carbon Dioxide Level 26 21-32 MMOL/L Anion Gap 11 5-14 MMOL/L Blood Urea Nitrogen 10 7-18 MG/DL Creatinine 0.68 0.60-1.30 MG/DL Estimat Glomerular Filtration Rate > 60 BUN/Creatinine Ratio 15 Glucose Level 106 H 70-105 MG/DL Calcium Level 9.8 8.5-10.1 MG/DL Corrected Calcium 8.5-10.1 MG/DL Magnesium Level 2.0 1.8-2.4 MG/DL Total Bilirubin 0.5 0.1-1.0 MG/DL Aspartate Amino Transf (AST/SGOT) 14 5-34 U/L Alanine Aminotransferase (ALT/SGPT) 24 0-55 U/L Alkaline Phosphatase 34 L 40-136 U/L Myoglobin 32.4 10.0-92.0 NG/ML Troponin I < 0.30 < 0.30 <0.30 NG/ML Total Protein 7.6 6.4-8.2 GM/DL Albumin 4.6 H 3.2-4.5 GM/DL TSH [place] Testing 1.10 0.35-4.94 UIU/ML Triglycerides Level 106 <150 MG/DL Cholesterol Level 165 < 200 MG/DL LDL Cholesterol Direct 116 1-129 MG/DL VLDL Cholesterol 21 5-40 MG/DL HDL Cholesterol 42 40-60 MG/DL Physical Exam Vital Signs Vital Signs - First Documented 07/04/18 17:52 Temp 98.0 Pulse 100 Resp 22 B/P (MAP) 150/81 (104) Pulse Ox 98 O2 Delivery Room Air Capillary Refill : Less Than 3 Seconds Height, Weight, BMI Height: 5'1.00" Weight: 151lbs. 3.0oz. 68.571486uf; 28.6 BMI Method:Stated General Appearance: No Apparent Distress, WD/WN Eyes: Bilateral Eye Normal Inspection, Bilateral Eye PERRL, Bilateral Eye EOMI HEENT: PERRL/EOMI, TMs Normal, Normal ENT Inspection, Pharynx Normal Neck: Full Range of Motion, Normal Inspection, Non Tender, Supple, Carotid Bruit Respiratory: Chest Non Tender, Lungs Clear, Normal Breath Sounds, No Accessory Muscle Use, No Respiratory Distress Cardiovascular: Regular Rate, Rhythm, No Edema, No Gallop, No JVD, No Murmur, Normal Peripheral Pulses Gastrointestinal: Normal Bowel Sounds, No Organomegaly, No Pulsatile Mass, Non Tender, Soft Back: Normal Inspection, No CVA Tenderness, No Vertebral Tenderness Extremity: Normal Capillary Refill, Normal Inspection, Normal Range of Motion, Non Tender, No Calf Tenderness, No Pedal Edema Neurologic/Psychiatric: Alert, Oriented x3, No Motor/Sensory Deficits, Normal Mood/Affect Skin: Normal Color, Warm/Dry Lymphatic: No Adenopathy A/P-Cardiology Admission Diagnosis Chest pain Shortness of breath SLE GERD Assessment/Plan Chest pain nonspecific etiology, atypical in presentation, unlikely to be cardiac in nature. Patient had a stress test and echocardiogram in 2012. She is at slightly increased risk of underlying heart disease, due to the fact that her cardiac enzymes and EKG were normal, and monitoring her and stress test as an outpatient. Shortness of breath, recent upper respiratory tract infection treated with 5 days of steroids. Chest x-ray was reported as questionable pulmonary nodule. I will repeat chest x-ray PA and lateral, white counts were normal. History of gastroesophageal reflux disease. Maintained on omeprazole History of systemic lupus erythematous, Elevated HERMANN, maintained on Plaquenil Mild depression, started on Lexapro recently History of iron deficiency anemia Clinical Quality Measures DVT/VTE Risk/Contraindication: Risk Factor Score Per Nursin RFS Level Per Nursing on Admit: 1=Low/No VTE PPX TAWANNA SEAY MD Jul 05, 2018 09:11
[2018-07-05] MEDS ORDERED: APAP 300 MG/CODEINE 30 MG (TYLENOL #3) TAB PO PRN (10:15)
--- NOTE | 2018-07-05 10:22 | Short Stay Summary-Hospitalist ---
History of Present Illness HPI/Chief Complaint Pt is a 43yoCF with a PMH of lupus who presented to the ER with CC of chest heaviness. She states her symptoms started roughly two weeks ago with some nausea and upper respiratory symptoms. 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 She states she got no relief from that and continued to feel chest heaviness. Her nausea worsened as well and she started a PPI for that without relief. She complete her steroids on 07/02 and then decided to see her PCP on 07/03 because she felt very shakey and weak from the steroids. She was started on Cefzil for possible bronchitis. Despite this she was still suffering from chest heaviness and decided to seek evaluation in the ER given her history. She states she feels as if she has a rib out of place and points to the pain as just under her sternum on her rib. Source: patient Exam Limitations: no limitations Date Seen 07/05/18 Time Seen by a Provider: 10:18 Attending Physician Radha Delaney MD PCP Jonnie Agarwal DO Referring Physician Date of Admission Jul 04, 2018 at 22:03 Home Medications & Allergies Home Medications Reviewed patient Home Medication Reconciliation performed by pharmacy medication reconciliations benefits technician and/or nursing. Patients Allergies have been reviewed. Allergies Allergies Coded Allergies Penicillins (Verified Allergy, Intermediate, HIVES AND SWELLING, 07/04/18) Past Xakcsij-Dhxrqe-Jvxzya Hx Past Med/Social Hx: Reviewed Nursing Past Med/Soc Hx Patient Social History Marrital Status: Employed/Student: employed Alcohol Use: Denies Use Recreational Drug Use: No Smoking Status: Never a Smoker 2nd Hand Smoke Exposure: No Physical Abuse Screen: No Sexual Abuse: No Recent Foreign Travel: No Contact w/other who traveled: No Recent Hopitalizations: No Recent Infectious Disease Expo: No Immunizations Up To Date Tetanus Booster (TDap): More than 5yrs Seasonal Allergies Seasonal Allergies: No Past Medical History Surgeries: Gallbladder : No Reproductive: No Gastrointestinal: Gastroesophageal Reflux Endocrine: Hypothyroidsim, Lupus Psychosocial: Anxiety History of Blood Disorders: No Family History Reviewed Nursing Family Hx Cancer (lung cancer-mom) Review of Systems Constitutional: No chills, No fever EENTM: No blurred vision, No double vision, No nose congestion, No throat pain Respiratory: see HPI, cough (mild); No dyspnea on exertion Cardiovascular: see HPI Gastrointestinal: heartburn, nausea Genitourinary: No dysuria, No frequency Musculoskeletal: No joint pain, No muscle pain Skin: No lesions, No rash Psychiatric/Neurological: Denies Headache, Denies Numbness, Denies Tingling Physical Exam Physical Exam Vital Signs Vital Signs - First Documented 07/04/18 17:52 Temp 98.0 Pulse 100 Resp 22 B/P (MAP) 150/81 (104) Pulse Ox 98 O2 Delivery Room Air Capillary Refill : Less Than 3 Seconds Height, Weight, BMI Height: 5'1.00" Weight: 151lbs. 3.0oz. 68.758654hp; 28.6 BMI Method:Stated General Appearance: No Apparent Distress, WD/WN HEENT: PERRL/EOMI, Moist Mucous Membranes Neck: Non Tender, Supple Respiratory: Lungs Clear, No Respiratory Distress, Other (tenderness to costochondral joint on the left lower aspect) Cardiovascular: Regular Rate, Rhythm, No Murmur Gastrointestinal: Normal Bowel Sounds, Non Tender, Soft Extremity: Normal Capillary Refill, No Calf Tenderness, No Pedal Edema Neurologic/Psychiatric: Alert, Oriented x3, Normal Mood/Affect Skin: Normal Color, Warm/Dry Results Results/Procedures Labs Laboratory Tests 07/04/18 19:28 Patient resulted labs reviewed. Imaging: Reviewed Imaging Report Short Stay Diagnosis Discharge Diagnosis-Short Stay Admission Diagnosis Chest Pain Final Discharge Diagnosis Atypical Chest Pain Conclusion Plan Chest Pain Does not appear to be cardiac in nature Troponin negative, d- dimer negative Likely costochondral pain States feels similar to when previously had a rib out of place Will start on short course of Tylenol #3 for pain control Advised to follow up with PCP and Dr Roldan for outpatient stress testing Lung Nodule Possible nodule noted on CXR or could be nipple shadow Review CT chest from 2016 and no lung nodule noted Will repeat CXR today Will need CT as outpatient Clinical Quality Measures DVT/VTE Risk/Contraindication: Risk Factor Score Per Nursin RFS Level Per Nursing on Admit: 1=Low/No VTE PPX RADHA DELANEY MD Jul 05, 2018 10:22
[2018-07-05] MEDS ORDERED: ACET-789 PO (10:28)
--- NOTE | 2018-07-05 11:08 | Diagnostic Imaging Report ---
EXAMINATION: CHEST (PA AND LATERAL) CLINICAL INDICATION: 43-year-old female, chest pain. COMPARISON: July 04, 2018. FINDINGS: Stable overall appearance of the cardiomediastinal silhouette. There is no identified pneumothorax. There is no pleural effusion. There is question of a nodular opacity in the region of the inferior aspect of the left heart border measuring 1.7 cm in size. There is no otherwise identified focal airspace consolidation. IMPRESSION: 1. Question potential 1.7 cm left lower lobe pulmonary nodule. Recommend CT chest without contrast for further assessment. 2. No otherwise noted potential acute cardiopulmonary abnormality. Dictated by: Dictated on workstation # [id number]
[2018-07-05] MEDS ORDERED: FLU QUADRIvalent (5+ YOA) 2018-2019 (AFLURIA) 0.5 ML IM ONE (11:30)
[2018-07-05] MEDS ORDERED: SUCR1TAB PO (13:50)
== END 2018-07-05 10:29 | disposition home or self-care (01) ==
LOC: EDUNIT# 17:43 → ER 17:45 → UNDOADMOB 22:03 → 4TH 22:03 → UNDODISOB 07-05 14:05
PROVIDERS: ADMIT Family Medicine; ATTEND Family Medicine
DX: R07.89 Other chest pain (principal); J20.9 Acute bronchitis, unspecified; R91.1 Solitary pulmonary nodule; E03.9 Hypothyroidism, unspecified; M32.9 Systemic lupus erythematosus, unspecified; F41.9 Anxiety disorder, unspecified; K21.9 Gastro-esophageal reflux disease without esophagitis; F32.9 Major depressive disorder, single episode, unspecified; R06.02 Shortness of breath
CPT/HCPCS: 36415; 71046; 80053; 80061; 83735; 83874; 84443; 84484; 85025; 85379; 85610; 85730; 87804; 93041; 94640

== ENCOUNTER → 2018-07-09 | Outpatient (CLI) | payer BC ==
[~2018-07-09] VITALS: Ht 154.9 cm; Wt 65.8 kg
[~2018-07-09] MED LIST changes: +ACET-789 PO; +ASPI-586 PO; +CATHETER FLUSH 10 ML SYR IV PRN; +ESCI20TA PO; +OMEP40CA36 PO; +SUCR1TAB PO
[2018-07-09 13:02] VITALS: BP 134/81
[2018-07-09 13:10] VITALS: BP 171/77
[2018-07-09 13:12] VITALS: BP 150/73
[2018-07-09 13:14] VITALS: BP 118/71
--- NOTE | 2018-07-09 15:00 | STRESS TEST ---
DATE OF SERVICE: 07/09/2018 EXERCISE MYOVIEW STRESS TEST REPORT Baseline heart rate is 72. Baseline blood pressure is 140/76. Baseline EKG is sinus rhythm with no ischemic changes. In summary, the patient was injected with 10.88 mCi of technetium-99 Myoview and the resting images were obtained. Then, she started exercising with a baseline heart rate, blood pressure and EKG mentioned above. She was able to exercise for a total of 7 minutes on standard Rei protocol. With peak exercise level, there were no EKG changes. Blood pressure at peak stress level was 171/77. During recovery, heart rate and blood pressure returned to baseline. EKG returned to baseline. The patient received a stress dose of 30.7 mCi of technetium-99 Myoview. The resting and stress images were reviewed and compared in the short axis, horizontal long axis, and vertical long axis views. Review of the images showed good radiotracer uptake with no significant ischemia or infarction, breast attenuation was noted. SSS is 2, SDS 0. TID value is 0.94. On the gated images, the left ventricle appeared to be in normal size with normal contractility. Calculated ejection fraction is 64%. CONCLUSION: 1. The patient was able to exercise for 7 minutes on standard Rei protocol, achieving 94% of maximum expected heart rate, total of 8.5 METs. 2. Appropriate heart rate and blood pressure response to exercise returned to baseline during recovery. 3. Minimal nondiagnostic EKG changes with exercise returned to baseline during recovery. 4. No ischemia or infarction on SPECT images. 5. Normal left ventricular size with normal contractility. Calculated ejection fraction is 64%. Job ID: [id number] DocumentID: [id number] Dictated Date: 07/09/2018 14:50:00 Social Work Job Titles Date: 07/09/2018 15:00:06 Dictated By: TAWANNA SEAY MD
== END ==
LOC: CARD 11:35
PROVIDERS: ATTEND Internal Medicine Cardiovascular Disease
DX: R07.89 Other chest pain (principal); R06.02 Shortness of breath; L93.0 Discoid lupus erythematosus
CPT/HCPCS: 78452; 93017

== ENCOUNTER → 2018-07-09 | Outpatient (CLI) | payer BC ==
[~2018-07-09] MED LIST changes: -CATHETER FLUSH 10 ML SYR IV PRN
--- NOTE | 2018-07-09 09:27 | Diagnostic Imaging Report ---
PROCEDURE: CT chest without contrast. TECHNIQUE: Multiple contiguous axial images were obtained through the chest without the use of intravenous contrast. INDICATION: Evaluation of pulmonary nodule seen on chest radiograph. COMPARISON: Chest radiograph on 07/05/2018. CT of the chest from 07/10/2017 FINDINGS: Lungs and airway: No endoluminal nodule within the trachea. No pulmonary mass or consolidation. There is an elongated 4 mm pulmonary nodule within the left lower lobe along the fissure compatible with benign intrapulmonary lymph node given configuration. No pulmonary nodule to account for radiographic abnormality. Pleura: No pleural effusion or pneumothorax. Heart and mediastinum: Thyroid is normal. No supraclavicular or axillary lymphadenopathy. No mediastinal, hilar or juxtaphrenic lymphadenopathy. There is a prominent focus of mediastinal fat along the cardiac apex that accounts for the radiographic abnormality. Heart is normal in size. No pericardial effusion. Normal caliber thoracic aorta. Upper abdomen: Cholecystectomy. Musculoskeletal: No worrisome focal osseous lesions. IMPRESSION: 1. No intrathoracic neoplasm or acute process. 2. The nodule seen on chest radiograph corresponds to a small area of benign/physiologic mediastinal fat at the level of the cardiac apex. Dictated by: Dictated on workstation # [id number]
== END ==
LOC: RAD 08:04
PROVIDERS: ATTEND Internal Medicine
DX: R91.1 Solitary pulmonary nodule (principal); Z90.49 Acquired absence of other specified parts of digestive tract
CPT/HCPCS: 71250

== ENCOUNTER 2019-09-30 06:40 | Day surgery (SDC) | payer BC ==
[~2019-09-30] VITALS: Ht 154 cm; Wt 67.0 kg
[2019-09-30] VITALS (10 sets, daily range): BP systolic 109–129; BP diastolic 68–77
[~2019-09-30 06:40] MED LIST changes: +OMEP40CA27 PO; -OMEP40CA36 PO
[2019-09-30] MEDS ORDERED: LIDOCAINE 1% INJ 20 ML 20 ML VIAL ONE (06:44)
[2019-09-30] MEDS ORDERED: HEParin (CATH LAB) 2,000 ML IV ONE (06:44)
[2019-09-30] MEDS ORDERED: NS IV 1000 ML 1,000 ML ONE (06:44)
[2019-09-30] MEDS ORDERED: NS IV 1000 ML 1,000 ML IV SCH ×2 (06:45→09:34)
[2019-09-30 07:11] LABS: HEMOGLOBIN 14.4 G/DL (11.5-16.0); MEAN PLATELET VOLUME 9.2 FL (7.4-10.4); RED CELL DISTRIBUTION WIDTH 13.2 % (10.0-14.5); WHITE BLOOD COUNT 5.3 10^3/uL (4.3-11.0)
[2019-09-30 07:13] LABS: CLARITY,URINE CLEAR; COLOR,URINE YELLOW; GLUCOSE, URINE (UA) NEGATIVE (NEGATIVE); KETONES,URINE 2+ (NEGATIVE); LEUKOCYTE ESTERASE ,URINE TRACE (NEGATIVE); NITRITE,URINE NEGATIVE (NEGATIVE); PROTEIN,URINE TRACE (NEGATIVE)
[2019-09-30 07:23] LABS: PROTHROMBIN TIME PATIENT 13.1 SEC (12.2-14.7)
[2019-09-30] MEDS ORDERED: HYDR200T46 PO (07:32)
[2019-09-30] MEDS ORDERED: FLUT9.9S NS (07:32)
[2019-09-30] MEDS ORDERED: ALPR0.25 PO (07:32)
[2019-09-30] MEDS ORDERED: CHOL400C9 PO (07:32)
[2019-09-30] MEDS ORDERED: LEVO50TA6 PO (07:32)
[2019-09-30] MEDS ORDERED: ACET-2267 PO (07:32)
[2019-09-30] MEDS ORDERED: MTP25TSR PO (07:32)
[2019-09-30] MEDS ORDERED: OMEP-280 PO (07:32)
[2019-09-30 07:35] LABS: BACTERIA,URINE FEW /HPF; BILIRUBIN,URINE 1+ (NEGATIVE)
[2019-09-30 07:37] LABS: ALANINE AMINOTRANSFERASE 24 U/L (0-55); ALBUMIN 4.7 GM/DL (3.2-4.5); ALKALINE PHOSPHATASE 35 U/L (40-136); BILIRUBIN,TOTAL 0.8 MG/DL (0.1-1.0); BUN/CREATININE RATIO 9; CALCIUM 9.6 MG/DL (8.5-10.1); CARBON DIOXIDE 26 MMOL/L (21-32); CHLORIDE 101 MMOL/L (98-107); CHOLESTEROL 153 MG/DL (< 200); CREATININE SERUM 0.77 MG/DL (0.60-1.30); GFR ESTIMATED > 60; GLUCOSE 101 MG/DL (70-105); HDL CHOLESTEROL 46 MG/DL (40-60); POTASSIUM 4.3 MMOL/L (3.6-5.0); SODIUM 135 MMOL/L (135-145); TOTAL PROTEIN 7.7 GM/DL (6.4-8.2); TRIGLYCERIDES 86 MG/DL (<150); VLDL CHOLESTEROL 17 MG/DL (5-40)
[2019-09-30] MEDS ORDERED: LEVO25TA5 PO (08:13)
[2019-09-30] MEDS ORDERED: FERR-84 PO (08:15)
[2019-09-30] MEDS ORDERED: MIDAZOLAM 5 MG/5 ML (VERSED) VIAL ONE (08:53)
[2019-09-30] MEDS ORDERED: fentaNYL INJECTION 100 MCG/2 ML AMP ONE (08:53)
[2019-09-30] MEDS ORDERED: VERAPAMIL 5 MG/2 ML (CALAN) VIAL IV ONE (08:54)
[2019-09-30] MEDS ORDERED: NITRO DRIP 25000 MCG/D5W 250 ML IV ONE (08:54)
[2019-09-30] MEDS ORDERED: HEParin 1000 UNIT/ML (10ML VIAL) FOR BOLUS ONE (08:54)
--- NOTE | 2019-09-30 08:54 | Diagnostic Imaging Report ---
INDICATION: Hypertension, chest pain. TECHNIQUE: Single frontal view of the chest. COMPARISON: 07/05/2018 FINDINGS: The lung volumes are normal. No focal consolidation is seen. No large pleural effusion or pneumothorax is seen. The cardiomediastinal silhouette is normal in size and contour. No acute osseous abnormality is seen. IMPRESSION: No acute pulmonary abnormality seen. Dictated by: Dictated on workstation # [id number]
--- NOTE | 2019-09-30 09:25 | NUR ---
SPOKE WITH THE PT WELL CALLING [facility] TO COMPLETE THE MED REC. PT WAS ABLE TO TELL ME HOW/WHEN SHE TAKES EACH MEDICATION. LEVOTHYROXINE 25MCG: THE DIRECTIONS FROM THE PHARMACY ARE " 1 TO 2 TABS DAILY ", PT SAYS SHE TAKES A TOTAL OF 50MCG DAILY. THE FOLLOWING ARE FILL DATES FROM [facility]: 07-06-2019 XANAX 0.25MG #60/USES PRN 07-27-2019 METOPROLOL SUCC 25MG #90/90DS 08-21-2019 LEVOTHYROXINE 25MCG #60/30DS 08-21-2019 HYDROXYCHLOROQUINE #60/30DS 09-07-2019 ESCITALOPRAM #30/30DS OTC MEDS: VIT D TYLENOL FLONASE OMEPRAZOLE ASPIRIN IRON
--- NOTE | 2019-09-30 09:34 | Cardiac Procedure Note-CS/ASA ---
Pre-Procedure Note Pre-Op Procedure Note H&P Reviewed The H&P was reviewed, patient examined and no changes noted. Date H&P Reviewed: Sep 30, 2019 Time H&P Reviewed: 09:33 Conscious Sedation Pre-Proced Time 09:33 ASA Score 3 For ASA 3 and 4: Consider anesthesia and medical clearance. Also, for patients with a history of failed moderate sedation consider anesthesia. Airway Lungs Heart ASA score ASA 1: a normal healthy patient ASA 2: a patient with a mild systemic disease (mid diabetes, controlled hypertension, obesity x ASA 3: a patient with a severe systemic disease that limits activity (angina, COPD, prior Myocardial infarction) ASA 4: a patient with an incapacitating disease that is a constant threat to life (CHF, renal failure) ASA 5: a moribund patient not expected to survive 24 hrs. (ruptured aneurysm) ASA 6: a declared brain- patient whose organs are being harvested. For emergent operations, add the letter E after the classification Mallampati Classification Grade 3 Sedation Plan Analgesia, Amnesia, Plan communicated to team members, Discussed options with patient/fam, Discussed risks with patient/fam The patient is an appropriate candidate to undergo the planned procedure, sedation, and anesthesia. The patient immediately re-assessed prior to indication. TAWANNA SEAY MD Sep 30, 2019 09:34
--- NOTE | 2019-09-30 09:35 | Discharge Inst-Post CATH ---
Discharge Inst-CATH/EP Problems Reviewed?: Yes Post Cardiac Cath/EP D/C Inst Follow Up/Plan Appointment with Dr. Roldan's office in 2-4 weeks <b>CARDIAC CATH/EP PROCEDURE DISCHARGE INSTRUCTIONS</b> ACTIVITY * Go Home directly and rest. * Limit activity of the leg (or wrist if it was used) for 7 days including aerobics, swimming, jogging, bicycling, etc. * Restrict stair-climbing for 7 days if possible, if not, climb up with your non-cath leg, then bring together on the same step. * Avoid lifting, pushing, pulling or excessive movement of the affected extremity for 7 days. * Customary sexual activity may be resumed after 2 days-use caution not to use a position that strains or causes pain to the affected extremity. * No driving for 24 hours. * NO SMOKING. * Avoid straining for bowel movements for 7 days. * Gentle walking on level ground is allowed. * Returning to work will depend on the type of procedure and the results. Your doctor will discuss this with you. CALL YOUR DOCTOR FOR ANY OF THE FOLLOWING: *If bleeding from the puncture site occurs- Apply gentle pressure to site with clean cloth and call your doctor or EMS. * If a knot or lump forms under the skin, increases in size, or causes pain. * If bruising appears to be worsening or moving further down your leg instead of disappearing. * Temperature above 101 F. CARE OF YOUR GROIN INCISION; * Bruising or purple discoloration of the skin near the puncture site is common. * You may shower only, no bathtub bathing for 5 days. Be careful to avoid slipping as your leg may feel stiff. * If a closure device was used on your femoral artery, please see the attached guide regarding care of the device and your leg. * Leave dressing on FOR 24 hours. CARE OF YOUR WRIST INCISION; * Bruising or purple discoloration of the skin near the puncture site is common. * You may shower. * DO NOT submerge wrist. * Leave dressing on FOR 24 hours. TAWANNA ROLDAN MD Sep 30, 2019 09:35
--- NOTE | 2019-09-30 09:40 | Cardiac Cath Report ---
Cardiac Cath Report Physician (s)/Survey Coordinator (s) Physician TAWANNA SEAY MD Pre-Procedure Diagnosis Pre-Procedure Diagnosis: CP Post-Procedure Note Procedure Start Date: Sep 30, 2019 Name of Procedure: [facility] Findings/Procedure Note PROCEDURE NOTE: After explaining the procedure to the patient, all pros and cons were explained, all questions were answered. The patient signed the consent and then she was placed on the cardiac catheterization laboratory. Groin was prepped SL fashion local anesthesia was used. Sheath placed in the right radial artery, angiogram and LV gram done At the end of the procedure the sheath was removed. vascular band used FINDINGS: Hemodynamics LV 102/10 Aorta 110/64/86 ANATOMY: Left Main is free of obstructive disease Left Anterior Descending is free of obstructive disease Left Circumflex is free of obstructive disease Right Coronory Artery is free of obstructive disease LV Gram is normal with EF 60% CONCLUSION: Normal coronary system Normal LV function DISCUSSION AND RECOMMENDATION: Chest pain is not cardiac Anesthesia Type: Conscious Sedation Estimated blood loss (mL): 10 ml Contrast Amount: 22 ml Total Radiation Dose: 72 mGy Post-Procedure Diagnosis Post-operative diagnosis: Chest pain Hypertension Hyperlipidemia Pulmonary hypertension TAWANNA SEAY MD Sep 30, 2019 09:40
== END 2019-09-30 12:23 | disposition home or self-care (01) ==
LOC: CATH 06:40
PROVIDERS: ATTEND Internal Medicine Cardiovascular Disease
DX: R07.9 Chest pain, unspecified (principal); I10 Essential (primary) hypertension; E78.2 Mixed hyperlipidemia; I27.20 Pulmonary hypertension, unspecified; I08.1 Rheumatic disorders of both mitral and tricuspid valves; Z88.0 Allergy status to penicillin; Z86.73 Personal history of transient ischemic attack (TIA), and cerebral infarction without residual deficits; Z79.82 Long term (current) use of aspirin; Z90.49 Acquired absence of other specified parts of digestive tract; Z80.1 Family history of malignant neoplasm of trachea, bronchus and lung
CPT/HCPCS: 36415; 71045; 80053; 80061; 81000; 84703; 85027; 85610; 85730; 87081; 93005; 93458

== ENCOUNTER → 2019-10-28 | Outpatient (CLI) | payer BC ==
[~2019-10-28] MED LIST changes: +ACET-2267 PO; +ALPR0.25 PO; +CHOL400C9 PO; +FERR-84 PO; +FLUT9.9S NS; +LEVO25TA5 PO; +LEVO50TA6 PO; +MTP25TSR PO; +OMEP20CA18 PO; +ONDANSETRON 4 MG/2 ML (SDV) Z0FRAN IV PRN
[2019-10-28] MEDS: LACTATED RINGERS 1,000 ML IV SCH ×2 (12:57→13:29)
--- NOTE | 2019-10-28 13:20 | Diagnostic Imaging Report ---
INDICATION: History of pneumonia and chest pain.. TECHNIQUE: Two view chest 12:36 PM CORRELATION STUDY: None FINDINGS: The heart size, mediastinal configuration and pulmonary vasculature are within normal limits. The lungs are clear with no consolidating infiltrate. There is no significant pleural effusion or pneumothorax. Increased density in the right cardio phrenic angle consistent with prominent pericardial fat. Bilateral nipple markers are utilized. IMPRESSION: 1. Negative for acute abnormality of the chest. Dictated by: Dictated on workstation # [id number]
[2019-10-28 14:40] VITALS: BP 121/76
== END ==
LOC: SDC 12:05
PROVIDERS: ATTEND Nurse Practitioner Family
DX: J18.1 Lobar pneumonia, unspecified organism (principal); K52.9 Noninfective gastroenteritis and colitis, unspecified
CPT/HCPCS: 71046; 96361; 96374

== ENCOUNTER → 2020-02-11 | Outpatient (CLI) | payer BC ==
[~2020-02-11] MED LIST changes: -ONDANSETRON 4 MG/2 ML (SDV) Z0FRAN IV PRN; +RT-ALBUTEROL SULF 2.5 MG/3 ML PRE-MIX VIAL INH ONE
== END ==
LOC: RT 07:34
PROVIDERS: ATTEND Family Medicine
DX: I27.20 Pulmonary hypertension, unspecified (principal)
CPT/HCPCS: 94060; 94726; 94729

== ENCOUNTER → 2020-11-02 | Outpatient (CLI) | payer BC ==
[~2020-11-02] MED LIST changes: +ESCI20TA39; -ESCI20TA45; -RT-ALBUTEROL SULF 2.5 MG/3 ML PRE-MIX VIAL INH ONE
== END ==
LOC: CARD 14:16
PROVIDERS: ATTEND Internal Medicine Cardiovascular Disease
DX: I10 Essential (primary) hypertension (principal); I34.0 Nonrheumatic mitral (valve) insufficiency
CPT/HCPCS: 93306